=== PATIENT | male | born 1965 | race Caucasian/White ===

== ENCOUNTER 2020-03-25 13:58 | Outpatient (REF) | payer MEDICAID, SELFPAY | END 2020-03-25 13:59 | disposition home or self-care (01) | LOC: HO.LAB 13:58 | PROVIDERS: PCP Internal Medicine; Visit Provider Internal Medicine | DX: Z20.828 Contact with and (suspected) exposure to other viral communicable diseases (principal) | CPT/HCPCS: C9803; U0003 ==

== ENCOUNTER 2020-06-06 08:28 | Outpatient (REF) | payer MEDICAID, SELFPAY ==
[2020-06-06 09:12] LABS: Estimated Average Glucose 128 mg/dL; Hemoglobin A1c % 6.1 %
[2020-06-06 10:23] LABS: Alanine Aminotransferase 51 U/L (0-40); Albumin Level 4.1 g/dL (3.5-5.0); Alkaline Phosphatase 56 U/L (39-117); Anion Gap 13 (12-20); Aspartate Amino Transferase 19 U/L (5-37); Bilirubin Total 0.4 mg/dL (0.0-1.0); Blood Urea Nitrogen 17 mg/dL (9-16); Calcium 9.2 mg/dL (8.4-10.2); Carbon Dioxide 30 mmol/L (22-29); Chloride 104 mmol/L (96-108); Cholesterol 219 mg/dL; Estimated Glomerular Filt Rate > 60; Glucose Fasting 132 mg/dL (60-99); HDL Cholesterol 31 mg/dL; LDL Cholesterol Calculated 137 mg/dl; Potassium 4.6 mmol/L (3.3-5.1); Sodium 142 mmol/L (135-145); Total Protein 6.4 g/dL (6.5-8.0); Triglycerides 256 mg/dL
[2020-06-06 10:46] LABS: TSH reflex Free T4 1.41 uIU/mL (0.32-4.0)
== END 2020-06-06 08:29 | disposition home or self-care (01) ==
LOC: HO.LAB 08:28
PROVIDERS: PCP Internal Medicine; Visit Provider Physician Assistant
DX: Z13.1 Encounter for screening for diabetes mellitus (principal); Z13.29 Encounter for screening for other suspected endocrine disorder; Z13.220 Encounter for screening for lipoid disorders
CPT/HCPCS: 36415; 80053; 80061; 83036; 84443

== ENCOUNTER 2020-07-02 07:26 | Outpatient (REF) | payer OTHER, SELFPAY ==
--- NOTE | ~2020-07-02 | XR_ITS ---
EXAMINATION: X-RAY BILATERAL KNEES CLINICAL INFORMATION: Pain COMPARISON: Left knee 05/31/2019 TECHNIQUE: Bilateral knees each 2 views FINDINGS: Right knee: Normal alignment. No fracture or dislocation. Mild lateral compartment joint space narrowing. No effusion. Mild soft tissue swelling in overlying the patellar tendon.. Left knee: Mild medial compartment arthritis. No fracture or dislocation. Small suprapatellar joint fluid. XR/XR knee LT 2V IMPRESSION: 1. Mild lateral compartment arthritis right knee. 2. Mild medial compartment arthritis left knee. Small suprapatellar joint fluid.
--- NOTE | ~2020-07-02 | XR_ITS ---
EXAMINATION: X-RAY BILATERAL KNEES CLINICAL INFORMATION: Pain COMPARISON: Left knee 05/31/2019 TECHNIQUE: Bilateral knees each 2 views FINDINGS: Right knee: Normal alignment. No fracture or dislocation. Mild lateral compartment joint space narrowing. No effusion. Mild soft tissue swelling in overlying the patellar tendon.. Left knee: Mild medial compartment arthritis. No fracture or dislocation. Small suprapatellar joint fluid. XR/XR knee RT 2V IMPRESSION: 1. Mild lateral compartment arthritis right knee. 2. Mild medial compartment arthritis left knee. Small suprapatellar joint fluid.
== END 2020-07-02 07:27 | disposition home or self-care (01) ==
LOC: HO.XRAY 07:26
PROVIDERS: PCP Internal Medicine; Visit Provider Nurse Practitioner Family
DX: M25.561 Pain in right knee (principal); M25.562 Pain in left knee
CPT/HCPCS: 73560

== ENCOUNTER 2020-09-24 06:40 | Emergency (ER) | payer OTHER, SELFPAY ==
--- NOTE | ~2020-09-24 | XR_ITS ---
EXAMINATION: XR ELBOW, RIGHT CLINICAL INFORMATION: Pain in ulnar nerve area COMPARISON: None TECHNIQUE: AP, lateral, and oblique views of the right elbow. FINDINGS: The bones and soft tissues are normal. No fracture or joint effusion. Alignment is anatomic. Joint spaces are maintained. XR/XR elbow RT 2V IMPRESSION: Normal right elbow.
--- NOTE | 2020-09-24 06:56 | ED.EXTPRO ---
HPI - Extremity Problem General Chief complaint: Extremity Problem Stated complaint: WOKE UP WITH RIGHT ARM PAIN,NO OTHER COMPLAINTS Time Seen by Provider: 09/24/20 06:56 Source: patient Mode of arrival: ambulatory Limitations: no limitations History of Present Illness HPI Narrative: Patient woke up with arm pain. Patient denies using the arm yesterday. Denies falling asleep with his arm impinged on anything. Complaint: extremity pain Onset (ago): hour(s) Pain Consistency: constant Location: right and upper extremity Quality: burning Radiation: distal Relieving factors: nothing Exacerbating factors: range of motion Associated symptoms: denies other symptoms Related Data Previous Rx's Medication Instructions Recorded fluocinolone acetonide oil 0.01 % 5 drp OTIC (EAR) LEFT BID 14 Days 05/23/20 ear drops #20 ml sildenafil 50 mg tablet 50 mg PO DAILY PRN 3 Days #3 tab 05/23/20 cyclobenzaprine 10 mg tablet 10 mg PO BEDTIME PRN 30 Days #30 07/01/20 tab ibuprofen 800 mg tablet 800 mg PO TID PRN 10 Days #30 tab 07/01/20 naproxen [Naprosyn] 500 mg PO BID #20 tab 09/24/20 Allergies Allergy/AdvReac Type Severity Reaction Status Date / Time No Known Allergies Allergy Verified 05/23/20 09:53 [No Known Allergies*] Review of Systems Constitutional: Constitutional: Reports no additional constitutional complaints Eyes: Eyes: Reports no additional eye complaints ENT: Denies dizziness Cardiovascular: Cardiovascular: Reports no additional cardiovascular complaints Respiratory: Respiratory: Reports as per HPI Gastrointestinal: Gastrointestinal: Reports no additional gastrointestinal complaints Musculoskeletal: Musculoskeletal: Reports no additional musculoskeletal complaints Integumentary/Breasts: Skin/Breast: Denies rash Neurologic: Reports system reviewed and no additional complaints, except as documented, Denies dizziness and Denies Sensory deficit (Neuro) Psychiatric: Psychiatric: Denies anxiety PMFSH Past Medical History Medical History Bilateral knee pain Dyslipidemia Erectile dysfunction Lumbar pain Lumbar radiculopathy, chronic Lumbar spondylosis with myelopathy Obese Shortness of breath Surgical History H/O right wrist surgery History of ankle surgery History of arthroscopy of right knee Family History Family History Father Hypertension Mother Medical history unknown Maternal Grandmother Lung cancer Maternal Grandfather Lung cancer Social History Social History Alcohol intake: current Alcohol intake frequency: a few times a week Alcohol type: beer and hard liquor Patient Tobacco Use Status: Former Tobacco user Smoked in Last 30 Days: No Use of substances other than those prescribed or required for medical reasons: Yes Substance Use Type: Marijuana Substance Use Frequency: Daily Last Used Substance: Hours (ago) Advance Directives: No Advance Directives Information Provided: No Physical Exam Vital Signs: Vital Signs: Last Vital Signs Temp 97.9 F 09/24/20 07:01 Pulse 85 09/24/20 07:01 Resp 14 09/24/20 07:01 BP 138/91 H 09/24/20 07:01 Pulse Ox 97 09/24/20 07:01 Body Mass Index 41.5 Const: General: healthy appearing Nutritional Appearance: average body habitus Orientation/consciousness: oriented to person and patient oriented x3 Limitations: no limitations HENMT: Head: Yes normal to inspection Ears: external ears normal General nose exam: Normal external nose present Mouth: Normal oral and palatal mucosa present and oropharynx normal Throat: Yes posterior oropharynx normal Eyes: General: appearance normal, both eyes and all related structures Neck: Other: supple Neck: Yes normal visual inspection Chest: Chest palpation & inspection: normal inspection of the chest Resp: Auscultation: clear to auscultation bilaterally Cardio: Jugular venous distension: no JVD Rate: regular rate Rhythm: regular rhythm Heart sounds: S1 normal heart sound present and S2 normal heart sound present GI: Inspection: Yes normal to inspection Palpation (GI): Soft to palpation, nontender and No hepatosplenomegaly present Auscultation: normal bowel sounds : General: Yes no CVA tenderness Back/Spine/Pelvis: Back: no CVA tenderness Skin: General skin exam: no rashes or lesions noted Neuro: General: oriented to person and patient oriented x3 Cranial nerves: Yes CN's II-XII intact bilaterally Motor exam (neuro): 5/5 motor strength present throughout Sensory Exam: No Sensory deficit (Neuro) Extrem: Other: Pain to elbow point tendenerness just next to olecranon where the ulnar nerve passes Psych: Appearance: grossly normal NIH Stroke Scale Level of Consciousness: Alert Level of Consciousness Questions: Answers both questions correctly Level of Consciousness Commands: Performs both tasks correctly Best Gaze: Normal Visual: No visual loss Facial Palsy: Normal Motor Arm (Right): No drift Motor Arm (Left): No drift Motor Leg (Right): No drift Motor Leg (Left): No drift Limb Ataxia: Absent Sensory: Normal Best Language: No aphasia Dysarthia: Normal Extinction and Inattention: No abnormality Score: 0 Course Course Course Narrative: Patient with no evidence of stroke, there is direct tenderness to ulnar nerve area Reevaluation(s) Reevaluation #1: inflammation to ulnar nerve oldecranon area, no evidence of CVA will dc on NSAIDs Time: 08:50 MDM - Extremity (Nontraumatic) Imaging Data right elbow: Radiologist's impression: normal elbow Discharge Plan Discharge Clinical Impression: Ulnar nerve entrapment at right elbow Bursitis, olecranon Qualifiers: Laterality: right Qualified Code(s): M70.21 - Olecranon bursitis, right elbow Patient Disposition: Home, Self-Care Instructions: Elbow Bursitis (ED) Prescriptions: New naproxen [Naprosyn] 500 mg tablet 500 mg PO BID Qty: 20 RF: 0 No Action fluocinolone acetonide oil [DermOtic Oil] 0.01 % drops 5 drp otic (ear) left BID 14 Days Qty: 20 RF: 2 sildenafil 50 mg tablet 50 mg PO DAILY PRN (Reason: sexual activity) 3 Days Qty: 3 RF: 3 cyclobenzaprine 10 mg tablet 10 mg PO BEDTIME PRN (Reason: muscle spasm) 30 Days Qty: 30 RF: 0 ibuprofen 800 mg tablet 800 mg PO TID PRN (Reason: pain) 10 Days Qty: 30 RF: 0 Referrals: Adri Dunn MD [Primary Care Provider] - 1 week
[2020-09-24 07:01] VITALS: BP 138/91; BP 210/130; PULSE 85; PULSE 86; RESP 14; TEMP 36.6; O2SAT 97; BMI 41.5
[2020-09-24] MEDS: Ketorolac Tromethamine 60 MG/2 ML VIAL IM (07:37)
== END 2020-09-24 09:07 | disposition home or self-care (01) ==
PROVIDERS: Emergency Provider Emergency Medicine; PCP Internal Medicine
DX: G56.21 Lesion of ulnar nerve, right upper limb (principal); M70.21 Olecranon bursitis, right elbow
CPT/HCPCS: 73070; 96372; 99284; J1885

== ENCOUNTER 2020-12-21 09:25 | Emergency (ER) | payer OTHER, SELFPAY ==
[2020-12-21 10:30] VITALS: BP 152/95; PULSE 115; RESP 16; TEMP 36.6; O2SAT 94; BMI 40.7
[2020-12-21 11:00] LABS: MANUAL DIFF FLAG NO
--- NOTE | 2020-12-21 11:10 | ED.GIBLEED ---
HPI - GI Bleed General Chief complaint: GI Bleed Stated complaint: blood in stool Time Seen by Provider: 12/21/20 10:31 Source: patient Mode of arrival: ambulatory Limitations: no limitations History of Present Illness HPI Narrative: Patient comes to the emergency room complaining blood in the stool for the last 3 days. Patient states he has mild abdominal discomfort, no pain, no vomiting. Patient denies diarrhea or constipation. Patient states that he sees the blood only when he wipes. Patient denies dizziness, no chest pain or shortness of Related Data Previous Rx's Medication Instructions Recorded fluocinolone acetonide oil 0.01 % 5 drp OTIC (EAR) LEFT BID 14 Days 05/23/20 ear drops (DermOtic Oil) #20 ml sildenafil 50 mg tablet 50 mg PO DAILY PRN 3 Days #3 tab 05/23/20 cyclobenzaprine 10 mg tablet 10 mg PO BEDTIME PRN 30 Days #30 07/01/20 tab ibuprofen 800 mg tablet 800 mg PO TID PRN 10 Days #30 tab 07/01/20 naproxen 500 mg tablet (Naprosyn) 500 mg PO BID #20 tab 09/24/20 Allergies Allergy/AdvReac Type Severity Reaction Status Date / Time No Known Allergies Allergy Verified 05/23/20 09:53 [No Known Allergies*] Review of Systems Review of Systems: Constitutional : No Weight loss, No Fever, No Chills, No Night Sweats, No Fatigue, No Malaise ENT/Mouth : No Hearing loss, No Ear Pain, No Nasal Congestion, No Sinus Pain, No Hoarseness, No sore throat, No Rhinorrhea, No Swallowing Difficulty Eyes: No Eye Pain, No Swelling, No Redness, No Foreign Body, No Discharge, No Vision Changes Cardiovascular : No Chest Pain, No SOB, No Dyspnea on Exertion, No Orthopnea, No Edema, No Palpitations Respiratory : No Cough, No Sputum, No Wheezing, No Smoke Exposure, No Dyspnea Gastrointestinal : No Nausea, No Vomiting, No Diarrhea, No Constipation, complaining of mild diffuse abdominal discomfort, complaining of seeing blood in the stool when he wipes Genitourinary : no irregular bleeding, No Dysuria, No Urinary Frequency, No Hematuria, No Urinary Incontinence, No Urgency, No Flank Pain, No Urinary Flow Changes, No Hesitancy Musculoskeletal : No joint pain, No Myalgias, No Joint Swelling Skin : No Skin Lesions, No rash Neuro : No Weakness, No Numbness, No Paresthesias, No Loss of Consciousness, No Dizziness, No Headache Psych : No Anxiety/Panic, No Depression, No SI/HI/AH/VH, No Social Issues, Heme/Lymph: No Bruising, No Bleeding,No Lymphadenopathy Endocrine : No Polyuria, No Polydipsia, No Temperature Intolerance PMFSH Past Medical History Medical History Bilateral knee pain Dyslipidemia Erectile dysfunction Lumbar pain Lumbar radiculopathy, chronic Lumbar spondylosis with myelopathy Obese Shortness of breath Surgical History H/O right wrist surgery History of ankle surgery History of arthroscopy of right knee Family History Family History Father Hypertension Mother Medical history unknown Maternal Grandmother Lung cancer Maternal Grandfather Lung cancer Social History Social History Alcohol intake: current Alcohol intake frequency: a few times a week Alcohol type: beer and hard liquor Patient Tobacco Use Status: Former Tobacco user Substance Use Type: Marijuana Advance Directives: No Advance Directives Information Provided: No Physical Exam Vital Signs: Vital Signs: Last Vital Signs Temp 98 F 12/21/20 10:30 Pulse 115 H 12/21/20 10:30 Resp 16 12/21/20 10:30 BP 152/95 H 12/21/20 10:30 Pulse Ox 94 12/21/20 10:30 Body Mass Index 40.7 Course Course Course Narrative: I discussed with the patient that he needs as CT a, patient states that he does not want an IV, complained to the nurse that is taking for a long time, I discussed with the patient that were short staffed. Patient stated that he does not care. Patient states he was to leave. So far, patient's labs show that he has a guaiac-positive test, white blood cell count within normal limits. It is likely that his diagnosis is internal hemorrhoids. At this time, patient is not having abdominal pain. However, the patient's workup is not complete. Patient will be leaving against medical advice MDM - GI Bleed Lab Data Result diagrams: 12/21/20 10:54 12/21/20 10:54 Labs: Lab Results 12/21/20 12/21/20 12/21/20 Range/Units 10:54 10:54 10:56 WBC 7.2 (4.8-10.8) X10*3/uL RBC 5.20 (4.60-5.80) X10*6/uL Hgb 16.1 (14.0-18.0) g/dl Hct 45.9 (42-52) % MCV 88.3 (80-98) fL MCH 31.0 (27.0-33.0) pg MCHC 35.1 (31.0-36.0) g/dl RDW 12.6 (11.0-16.0) % Plt Count 199 (160-400) X10*3/uL MPV 10.2 (9.4-12.4) fL Immature Gran % (Auto) 0.8 H (0.0-0.4) % Neut % (Auto) 63.4 (45-73) % Lymph % (Auto) 23.3 (20-40) % Upson % (Auto) 9.0 (2-11) % Eos % (Auto) 3.1 (0-4) % Baso % (Auto) 0.4 (0-2) % Lymph # (Auto) 1.7 (1.2-4.9) X10*3/uL Upson # (Auto) 0.7 (0.1-1.2) X10*3/uL Eos # (Auto) 0.2 (0.0-0.4) X10*3/uL Baso # (Auto) 0.0 (0.0-0.2) X10*3/uL Abs Immat Gran (auto) 0.06 H (0.00-0.03) X10*3/uL Absolute Neuts (auto) 4.6 (2.0-8.3) X10*3/uL Absolute Nucleated RBC 0.000 (0.0-0.012) X10*3/uL Nucleated RBC % (auto) 0.0 (0.0-0.2) /100WBC Sodium 138 (135-145) mmol/L Potassium 4.3 (3.3-5.1) mmol/L Chloride 106 (96-108) mmol/L Carbon Dioxide 24 (22-29) mmol/L Anion Gap 12 (12-20) BUN 14 (9-16) mg/dL Creatinine 1.04 (0.5-1.4) mg/dL Estim Creat Clear Calc 114.0 Estimated GFR > 60 Random Glucose 246 H (60-115) mg/dL Calcium 9.2 (8.4-10.2) mg/dL Total Bilirubin 0.4 (0.0-1.0) mg/dL Direct Bilirubin 0.2 (0.0-0.5) mg/dL AST 70 H (5-37) U/L ALT 127 H (0-40) U/L Alkaline Phosphatase 62 (39-117) U/L Total Protein 6.3 L (6.5-8.0) g/dL Albumin 3.8 (3.5-5.0) g/dL Stool Occult Blood POSITIVE (NEGATIVE) Discharge Plan Discharge Clinical Impression: Rectal bleeding Patient Disposition: Left Against Medical Advice Instructions: Rectal Bleeding (ED) Additional Instructions: You left against medical advice. Your workup is not complete. Please follow-up with your primary care physician tomorrow. If you have any worsening or new symptoms, please return to the emergency room or call 911 Prescriptions: No Action fluocinolone acetonide oil [DermOtic Oil] 0.01 % drops 5 drp otic (ear) left BID 14 Days Qty: 20 RF: 2 naproxen [Naprosyn] 500 mg tablet 500 mg PO BID Qty: 20 RF: 0 sildenafil 50 mg tablet 50 mg PO DAILY PRN (Reason: sexual activity) 3 Days Qty: 3 RF: 3 cyclobenzaprine 10 mg tablet 10 mg PO BEDTIME PRN (Reason: muscle spasm) 30 Days Qty: 30 RF: 0 ibuprofen 800 mg tablet 800 mg PO TID PRN (Reason: pain) 10 Days Qty: 30 RF: 0
[2020-12-21 11:24] LABS: Alanine Aminotransferase 127 U/L (0-40); Albumin Level 3.8 g/dL (3.5-5.0); Alkaline Phosphatase 62 U/L (39-117); Anion Gap 12 (12-20); Aspartate Amino Transferase 70 U/L (5-37); Bilirubin Direct 0.2 mg/dL (0.0-0.5); Bilirubin Total 0.4 mg/dL (0.0-1.0); Blood Urea Nitrogen 14 mg/dL (9-16); Calcium 9.2 mg/dL (8.4-10.2); Carbon Dioxide 24 mmol/L (22-29); Chloride 106 mmol/L (96-108); Estimated Glomerular Filt Rate > 60; Glucose Random 246 mg/dL (60-115); Potassium 4.3 mmol/L (3.3-5.1); Sodium 138 mmol/L (135-145); Total Protein 6.3 g/dL (6.5-8.0)
[2020-12-21 11:26] LABS: OBS Int Ctl Valid YES; OBS1 POSITIVE (NEGATIVE)
[2020-12-21 11:27] LABS: Basophils Percent Auto 0.4 % (0-2); Eosinophils Absolute Auto 0.2 X10*3/uL (0.0-0.4); Eosinophils Percent Auto 3.1 % (0-4); Hematocrit 45.9 % (42-52); Hemoglobin 16.1 g/dl (14.0-18.0); Imm Gran Abs Auto 0.06 X10*3/uL (0.00-0.03); Imm Gran Pct Auto 0.8 % (0.0-0.4); Lymphocytes Absolute Auto 1.7 X10*3/uL (1.2-4.9); Lymphocytes Percent Auto 23.3 % (20-40); Mean Corpuscular HGB Conc 35.1 g/dl (31.0-36.0); Mean Corpuscular Volume 88.3 fL (80-98); Mean Platelet Volume 10.2 fL (9.4-12.4); Monocytes Absolute Auto 0.7 X10*3/uL (0.1-1.2); Neutrophils Absolute Auto 4.6 X10*3/uL (2.0-8.3); Neutrophils Percent Auto 63.4 % (45-73); Platelet Count 199 X10*3/uL (160-400); Red Cell Distribution Width 12.6 % (11.0-16.0); White Blood Count 7.2 X10*3/uL (4.8-10.8)
== END 2020-12-21 13:27 | disposition left against medical advice (07) ==
PROVIDERS: Emergency Provider Emergency Medicine; PCP Internal Medicine
DX: K62.5 Hemorrhage of anus and rectum (principal); F12.90 Cannabis use, unspecified, uncomplicated; Z87.891 Personal history of nicotine dependence; Z79.899 Other long term (current) drug therapy
CPT/HCPCS: 36415; 80048; 80076; 82272; 85025; 99283

== ENCOUNTER 2021-02-27 11:49 | Emergency (ER) | payer OTHER, SELFPAY ==
--- NOTE | ~2021-02-27 | XR_ITS ---
EXAMINATION: XR KNEE, LEFT CLINICAL INFORMATION: Worsening pain over past few months. COMPARISON: Radiographs left knee 07/02/2020, 05/31/2019 TECHNIQUE: 5 views of the left knee. FINDINGS: There is no fracture, dislocation, destructive process. Again, there are osteoarthritic changes medial knee joint compartment with joint narrowing and narrowing. A moderate suprapatellar effusion is present, increased from prior study. Joint narrowing is increased since 2020. There is no erosive change or chondrocalcinosis. XR/XR knee LT 4V IMPRESSION: Osteoarthritis medial knee joint compartment with moderate effusion increased from prior study.
[2021-02-27 12:58] VITALS: BP 140/76; PULSE 105; RESP 20; TEMP 36.1; O2SAT 95; BMI 41.5
--- NOTE | 2021-02-27 13:41 | ED.EXTPRO ---
HPI - Extremity Problem General Chief complaint: Extremity Problem Stated complaint: L KNEE PAIN Time Seen by Provider: 02/27/21 13:11 Source: patient Mode of arrival: ambulatory Limitations: no limitations History of Present Illness HPI Narrative: 56-year-old male past medical history dyslipidemia, obesity presents to the emergency department with 3 months of left-sided knee pain that is progressively worsening over the past week. Patient states that he recently got a new job at [employer], where he is on his feet for long periods of time. He states he does not remember how he injured his knee 3 months ago, but he states there is no trauma. He states that the pain is constant, severe worse with walking and movement better at rest. He states he has also noted some associated left knee swelling. He denies paresthesias, numbness, tingling, chest pain, shortness of breath, fevers, chills, headache. MD Complaint: extremity pain (left knee ) and extremity swelling (left knee ) Onset (ago): month(s) (3) Pain Consistency: constant Location: left Severity scale (1-10): 6 Quality: aching and constant Radiation: none Relieving factors: immobilization Exacerbating factors: range of motion, weight bearing and walking Associated symptoms: denies other symptoms Related Data Previous Rx's Medication Instructions Recorded fluocinolone acetonide oil 0.01 % 5 drp OTIC (EAR) LEFT BID 14 Days 05/23/20 ear drops (DermOtic Oil) #20 ml sildenafil 50 mg tablet 50 mg PO DAILY PRN 3 Days #3 tab 05/23/20 cyclobenzaprine 10 mg tablet 10 mg PO BEDTIME PRN 30 Days #30 07/01/20 tab ibuprofen 800 mg tablet 800 mg PO TID PRN 10 Days #30 tab 07/01/20 naproxen 500 mg tablet (Naprosyn) 500 mg PO BID #20 tab 09/24/20 naproxen 500 mg tablet 500 mg PO BID PRN #14 tab 02/27/21 Allergies Allergy/AdvReac Type Severity Reaction Status Date / Time pepper (genus Capsicum) AdvReac Unknown Verified 02/27/21 13:00 Review of Systems Review of Systems: Constitutional : No Weight loss, No Fever, No Chills, No Fatigue, No Malaise ENT/Mouth : No sore throat, No Rhinorrhea Eyes: No Eye Pain, No Swelling, No Redness Cardiovascular : No Chest Pain, No SOB, No Dyspnea on Exertion, No Orthopnea, No Edema, No Palpitations Respiratory : No Cough, No Sputum, No Wheezing Gastrointestinal : No Nausea, No Vomiting, No Diarrhea, No Constipation, No abdominal Pain, No Hematochezia, No Melena Genitourinary : No Dysuria, No Urinary Frequency, No Hematuria, Musculoskeletal : + joint pain, No Myalgias, + Joint Swelling Skin : No Skin Lesions, No rash Neuro : No Weakness, No Numbness, No Dizziness, No Headache All other systems reviewed and are negative [facility] Past Medical History Attestation statement: The following information was validated with the patient. Source: old records reviewed and nursing notes reviewed Medical History Bilateral knee pain Dyslipidemia Erectile dysfunction Lumbar pain Lumbar radiculopathy, chronic Lumbar spondylosis with myelopathy Obese Shortness of breath Surgical History H/O right wrist surgery History of ankle surgery History of arthroscopy of right knee Family History Family History Father Hypertension Mother Medical history unknown Maternal Grandmother Lung cancer Maternal Grandfather Lung cancer Social History Social History Alcohol intake: current Alcohol intake frequency: a few times a week Alcohol type: beer and hard liquor Patient Tobacco Use Status: Former Tobacco user Substance Use Type: Marijuana Advance Directives: No Advance Directives Information Provided: Yes Physical Exam Vital Signs: Vital Signs: Last Vital Signs Temp 97 F 02/27/21 12:58 Pulse 105 H 02/27/21 12:58 Resp 20 02/27/21 12:58 BP 140/76 H 02/27/21 12:58 Pulse Ox 95 02/27/21 12:58 Body Mass Index 41.5 Appearance: Alert.? Oriented X3.? No acute distress.? Head: Normocephalic, atraumatic, no step-offs or deformities Eyes: Pupils equal, round and reactive to light.? ENT: Pharynx normal.? Neck: Normal inspection.? Neck supple.? CVS: Normal heart rate and rhythm.? Pulses normal.? Respiratory: No respiratory distress.? Breath sounds normal.? Abdomen: Soft and nontender.? Skin: Skin warm and dry.? Normal skin color.? Normal skin turgor.? Extremities: No lower extremity edema.? No calf ttp. 5/5 strength to bilateral upper and lower extremities + pain with ROM of left knee but full ROM + swelling to left knee, no overlying erythema. Right knee normal Back: No midline tenderness, no C-spine tenderness, full range of motion, no CVA tenderness bilaterally Neuro: Oriented X 3.? No motor deficit.? No sensory deficit. Course Reevaluation(s) Reevaluation #1: CARMINE wrap applied, medicated and noted improvement. Time: 13:49 Reevaluation #2: Left osteoarthritis of medial knee joint with moderate effusion. This is likely what is causing patient's pain. There were is no evident ligamentous or tendon involvement on exam. Patient is safe for discharge home with orthopedic follow-up. He has been advised to wear an Carmine wrap, he can remove this at night. He has also been advised to rest, ice, compress, elevate the extremity. Time: 14:16 MDM - Extremity (Nontraumatic) [facility] Narrative Medical decision making narrative: [id number] 56-year-old male past medical history significant for dyslipidemia, obesity presents to the emergency department with 3 months progressively worsening atraumatic left knee pain and swelling. Pain is worse with movement better at rest. Patient denies fevers, chills, nausea, vomiting, chest pain, shortness of breath. Patient denies trauma to the area. Upon physical examination patient appears comfortable and in no distress, he is able to ambulate without a limp, no ataxia. Lungs are clear to auscultation. S1-S2 appreciated free of murmurs. There is pain with ROM of left knee but full ROM. There is also edema to left knee, with no overlying erythema. Right knee normal. Bilateral popliteal pulses 2+ equal bilateral. Plan at this time is to obtain an x-ray of the left knee to rule out fractures, osteoarthritis, and fusion. He will be given Toradol for pain and discomfort. Am CARMINE wrap will be applied to left knee Imaging Data Left Knee Xray : Attestation: I personally reviewed and interpreted this imaging study as follows: Radiologist's impression: FINDINGS: There is no fracture, dislocation, destructive process. Again, there are osteoarthritic changes medial knee joint compartment with joint narrowing and narrowing. A moderate suprapatellar effusion is present, increased from prior study. Joint narrowing is increased since 2019. There is no erosive change or chondrocalcinosis.? XR/XR knee LT 4V IMPRESSION: Osteoarthritis medial knee joint compartment with moderate effusion increased from prior study. ? Critical Care Time Critical Care Time Critical Care Time: No Discharge Plan Discharge Clinical Impression: Generalized nontraumatic pain of knee region Osteoarthritis Qualifiers: Osteoarthritis location: knee Osteoarthritis type: primary Laterality: left Qualified Code(s): M17.12 - Unilateral primary osteoarthritis, left knee Patient Disposition: Home, Self-Care Instructions: Osteoarthritis (ED) Additional Instructions: Take your medications as prescribed. Rest, ice, compress, elevate. Wear your Carmine wrap as prescribed Follow-up with your primary care provider this week. Return to the emergency department with new or worsening symptoms. In case of emergency call 911 Prescriptions: New naproxen 500 mg tablet 500 mg PO BID PRN (Reason: pain) Qty: 14 RF: 0 No Action fluocinolone acetonide oil [DermOtic Oil] 0.01 % drops 5 drp otic (ear) left BID 14 Days Qty: 20 RF: 2 naproxen [Naprosyn] 500 mg tablet 500 mg PO BID Qty: 20 RF: 0 sildenafil 50 mg tablet 50 mg PO DAILY PRN (Reason: sexual activity) 3 Days Qty: 3 RF: 3 cyclobenzaprine 10 mg tablet 10 mg PO BEDTIME PRN (Reason: muscle spasm) 30 Days Qty: 30 RF: 0 ibuprofen 800 mg tablet 800 mg PO TID PRN (Reason: pain) 10 Days Qty: 30 RF: 0 Referrals: Zach Gunter MD [Physician] - 1 week Stand Alone Forms: Work/School Release
[2021-02-27] MEDS: Ketorolac Tromethamine 15 MG/ML VIAL 30 MG IM (13:59)
== END 2021-02-27 14:37 | disposition home or self-care (01) ==
PROVIDERS: Emergency Provider Emergency Medicine Emergency Medical Services; PCP Internal Medicine
DX: M25.562 Pain in left knee (principal); M17.12 Unilateral primary osteoarthritis, left knee; M25.462 Effusion, left knee
CPT/HCPCS: 73564; 96372; 99284; J1885

== ENCOUNTER 2021-03-21 07:07 | Outpatient (REF) | payer OTHER, SELFPAY ==
--- NOTE | ~2021-03-21 | XR_ITS ---
EXAMINATION: XR knee standing BI, XR knee LT 1V CLINICAL INFORMATION: Pain COMPARISON: 02/27/2021 TECHNIQUE: Bilateral frontal standing, left patella sunrise view. FINDINGS: BONES: No fracture or dislocation is present. JOINTS: Narrowing of joint spaces and developed osteophytes from the edges of articular surfaces suggest degenerative osteoarthritis. SOFT TISSUE: Normal XR/XR knee standing BI IMPRESSION: Mild degenerative osteoarthritis involving left more than right knee medial more than lateral compartments.
--- NOTE | ~2021-03-21 | XR_ITS ---
EXAMINATION: XR knee standing BI, XR knee LT 1V CLINICAL INFORMATION: Pain COMPARISON: 02/27/2021 TECHNIQUE: Bilateral frontal standing, left patella sunrise view. FINDINGS: BONES: No fracture or dislocation is present. JOINTS: Narrowing of joint spaces and developed osteophytes from the edges of articular surfaces suggest degenerative osteoarthritis. SOFT TISSUE: Normal XR/XR knee LT 1V IMPRESSION: Mild degenerative osteoarthritis involving left more than right knee medial more than lateral compartments.
== END 2021-03-21 07:08 | disposition home or self-care (01) ==
LOC: HO.HOSX 07:07
PROVIDERS: Visit Provider Physician Assistant
DX: M17.12 Unilateral primary osteoarthritis, left knee (principal)
CPT/HCPCS: 73560; 73565; 99202

== ENCOUNTER → 2021-05-26 13:35 | Outpatient (BNVA) | payer OTHER, SELFPAY | PROVIDERS: PCP Internal Medicine; Visit Provider Physician Assistant | DX: M17.0 Bilateral primary osteoarthritis of knee (principal) | CPT/HCPCS: 99212 ==

== ENCOUNTER → 2021-07-09 14:04 | Outpatient (BNVA) | payer OTHER, SELFPAY | PROVIDERS: PCP Internal Medicine; Referring Provider Internal Medicine; Visit Provider Physician Assistant | DX: Z01.818 Encounter for other preprocedural examination (principal); K64.9 Unspecified hemorrhoids; R00.0 Tachycardia, unspecified; I49.9 Cardiac arrhythmia, unspecified | CPT/HCPCS: 99202 ==

== ENCOUNTER → 2021-09-11 13:45 | Outpatient (BNVA) | payer OTHER, SELFPAY | PROVIDERS: PCP Internal Medicine; Referring Provider Physician Assistant; Visit Provider Internal Medicine Cardiovascular Disease | DX: Z01.810 Encounter for preprocedural cardiovascular examination (principal) | CPT/HCPCS: 93005; 99202 ==

== ENCOUNTER 2022-05-28 06:02 | Outpatient (REF) | payer OTHER, SELFPAY ==
[2022-05-28 11:52] LABS: Alanine Aminotransferase 54 U/L (0-40); Albumin Level 3.9 g/dL (3.5-5.0); Alkaline Phosphatase 74 U/L (39-117); Anion Gap 18 (12-20); Aspartate Amino Transferase 30 U/L (5-37); Bilirubin Total 0.6 mg/dL (0.0-1.0); Blood Urea Nitrogen 12 mg/dL (9-16); Calcium 9.2 mg/dL (8.4-10.2); Carbon Dioxide 25 mmol/L (22-29); Chloride 103 mmol/L (96-108); Cholesterol 230 mg/dL; Estimated Glomerular Filt Rate > 60; Glucose Fasting 195 mg/dL (60-99); HDL Cholesterol 36 mg/dL; LDL Cholesterol Calculated 138 mg/dl; Potassium 4.5 mmol/L (3.3-5.1); Sodium 141 mmol/L (135-145); Total Protein 6.5 g/dL (6.5-8.0); Triglycerides 280 mg/dL
[2022-05-28 12:12] LABS: PSA,Total (Free>4and<10) 0.32 ng/mL (0.00-4.00)
== END 2022-05-28 06:03 | disposition home or self-care (01) ==
LOC: HO.HMGCLDS 06:02
PROVIDERS: PCP Internal Medicine; Visit Provider Internal Medicine
DX: Z00.00 Encounter for general adult medical examination without abnormal findings (principal); Z12.5 Encounter for screening for malignant neoplasm of prostate; E78.5 Hyperlipidemia, unspecified
CPT/HCPCS: 36415; 80053; 80061; 84153

== ENCOUNTER 2022-12-16 08:45 | Outpatient (AMB) | payer OTHER, SELFPAY ==
--- NOTE | 2022-12-16 08:49 | A.OFFVIS_ITS ---
Intake VS Expanded 12/16/22 09:02 12/16/22 09:20 Height 5 ft 10 in 5 ft 10 in Weight 304 lb 3.806 oz 304 lb BMI 43.6 43.6 Intake Visit Reasons: DM2 Allergies pepper (genus Capsicum) Adverse Reaction (Verified 10/05/22 09:56) Unknown HPI Nutrition Presentation Details Patient presents for initial medical nutrition therapy for type 2 diabetes. Diabetes was diagnosed in October 2022. Patient was referred by primary care physician, Dr. Sarkar Pt reports cutting down on sugar intake typical meal intake B: 1 slice eggs omelette with cranberry juice or glass of milk or tomato juice 12-1 soup (clam chowder or pea soup or ramen noddles and sandwich, zero sweet 5-7 pm: meat (poultry or fish) /starch ( potato or rice white) , (rarely may include) corn or broccoli or Declo sprouts) snack on pretzels fish 3 times/wk poultry/beef/egg 12-18 oz/d fruits: 0-1/d vegetables: 2-3 x/wk dairy: 4 serving/d starches : > 20 serving/d physical activity: daily life activities eTOH/Smoking:--- PTU-Gqtirao-Sk.Jeor Equation Height 5 ft 10 in Weight 304 lb Resting Metabolic Rate 2223.19 Calculated Activity Level Sedentary Calories Needed to Maintain Weight 2667.83 Diagnosis0 Nutrition problem #1 food nutri know defi As related to (etiology) #1 diagnosis As evidenced by (sign/symptom) #1 food recall and knowledge deficit of diet Monitoring/Goals Nutrition problem monitoring level of knowledge/skill and total CHO intake Learning/Education Readiness to learn good Stages of change preparation Educational materials provided Yes (meal planning) Most Recent Diabetes Results: Cholesterol 230 mg/dL 05/28/22 HDL Cholesterol 36 mg/dL 05/28/22 Triglycerides 280 mg/dL 05/28/22 Creatinine 1.00 mg/dL (0.5-1.4) 05/28/22 Blood Urea Nitrogen 12 mg/dL (9-16) 05/28/22 Sodium 141 mmol/L (135-145) 05/28/22 Potassium 4.5 mmol/L (3.3-5.1) 05/28/22 Chloride 103 mmol/L (96-108) 05/28/22 Carbon Dioxide 25 mmol/L (22-29) 05/28/22 Calcium 9.2 mg/dL (8.4-10.2) 05/28/22 AST 30 U/L (5-37) 05/28/22 ALT 54 U/L (0-40) H 05/28/22 Total Protein 6.5 g/dL (6.5-8.0) 05/28/22 Albumin 3.9 g/dL (3.5-5.0) 05/28/22 [facility] Medical History (Updated 10/05/22 @ 10:22 by Adri Ariza MD) Physical exam Mixed hyperlipidemia Morbid obesity Screen for colon cancer Lumbar pain Bilateral knee pain Erectile dysfunction Dyslipidemia Obese Lumbar spondylosis with myelopathy Shortness of breath Lumbar radiculopathy, chronic Surgical History History of arthroscopy of right knee H/O right wrist surgery History of ankle surgery Family History (Updated 05/27/22 @ 15:12 by Adri Ariza MD) Father Heart attack COPD (chronic obstructive pulmonary disease) Mother No problems noted. Maternal Grandmother Lung cancer Maternal Grandfather Lung cancer Social History (Updated 05/27/22 @ 15:13 by Adri Ariza MD) Housing: Other (trailer) Alcohol intake: former Patient Tobacco Use Status: Former Tobacco user Tobacco use type: Cigarette e-Cigarette/Vaping Use: Never Used Second Hand Smoke Exposure: No Substance Use Type: Marijuana service: No Current occupational status: employed Current occupational exposures/hazards: No Cognitive needs: No Hearing needs: No Vision needs: No Assessment & Plan Assessment & Plan (1) Diabetes mellitus: Code(s): E11.9 - Type 2 diabetes mellitus without complications Plan: wt 138 kg(12/2022) Est kcal needs as per MSJ: 2700 (40% carb, 30% protein/fat) Est fluid needs as per 25-30 ml/d: 3400 Est prot per day as per 1 g/kg bw: 138 Recommend fiber intake : 8-10 g per day and gradually increase to 25-28 g per day for women and 35-38 g for men or as tolerated Recommend sodium intake per day : less than 2000 mg Educated patient on: ( R = reviewed V = verbalizes understanding N/R = needs review N/A = not applicable * Food sources of carbohydrate, adequate serving sizes and its role in various health conditions: R * Differences between complex carbohydrates a simple carbohydrates, role of fiber in diet: R * Differences between types of fats and role in diet (mono on saturated fat fatty acids, saturated fatty acids, trans fats): R basic * Food sources of sodium in salt and healthy modifications for heart health in kidney health: NR * Vitamins and minerals: NR * Healthy plate method concept: R * Physical activity: Benefits a precaution: R * Hypoglycemia protocol (rule of 15): NR * Dietary prevention of Hyperglycemia: R (2) Morbid obesity: Code(s): E66.01 - Morbid (severe) obesity due to excess calories Patient Instructions: Work on reducing total carbohydrates to 75-80 g in your evening meal Keep hydrated by choosing beverages with little carbohydrate Practice mindful eating Coding Level of Care Code Nutr Indiv Intake (51539) Diagnoses Diabetes mellitus E11.9 Morbid obesity E66.01 Time Spent (min) 40
[2022-12-16 09:02] VITALS: BMI 43.6
[2022-12-21 14:42] VITALS: BMI 43.6
== END 2022-12-16 10:10 | disposition home or self-care (01) ==
PROVIDERS: PCP Internal Medicine; Visit Provider Dietitian, Registered
DX: E11.9 Type 2 diabetes mellitus without complications (principal); E66.01 Morbid (severe) obesity due to excess calories

== ENCOUNTER → 2022-12-16 08:45 | Outpatient (BNVA) | payer OTHER, SELFPAY | PROVIDERS: PCP Internal Medicine; Visit Provider Dietitian, Registered | DX: E11.9 Type 2 diabetes mellitus without complications (principal); E66.01 Morbid (severe) obesity due to excess calories; Z68.41 Body mass index [BMI] 40.0-44.9, adult | CPT/HCPCS: 97802 ==

== ENCOUNTER 2023-01-13 07:47 | Outpatient (AMB) | payer OTHER, SELFPAY ==
[2023-01-13 08:08] VITALS: BP 126/80; PULSE 89; BMI 43.0
--- NOTE | 2023-01-13 08:08 | A.OFFPC_ITS ---
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 Accompanied by: Self / Same As Patient Allergies metformin Adverse Reaction (Severe, Verified 01/13/23 08:21) Diarrhea pepper (genus Capsicum) Adverse Reaction (Verified 01/13/23 08:21) Unknown Medication List - Last Reconciled 01/13/23 by Adri Ariza MD blood sugar diagnostic (FreeStyle Lite Strips) Use 1 test strip once a day blood-glucose meter (FreeStyle Lite Meter kit) As directed lancets (FreeStyle Lancets) Use 1 lancet once a day Tobacco use date assessed: 05/27/22 Dental Screening Dental Screen Date: 01/13/23 Did you have a dental visit in the last 12 months?: Yes Did you have a dental problem in the last 6 months where you did not have access to dental care?: No Was dental information given to patient?: Patient has dentist HPI HPI Comments History of Present Illness Details This is a 58-year-old male with diabetes mellitus type 2, mixed hyperlipidemia, morbid obesity and positive stool for occult blood that happened 2020 comes today for follow-up on his conditions. A1c within goal. He took metformin for about a week and had to stop due to severe diarrhea. Has not take anything for his glucose. I will start him on Actos. Last LDL was not on goal and this will be repeated. Was advised to follow a low-cholesterol diet. He is morbidly obese with a BMI of 43 and has declined weight loss surgery. Was advised to start diet and exercise as tolerated. Complains of left knee pain and he said he does not have any cartilage left as per Ortho. Declines physical therapy and ortho referral. Had a positive stool for occult blood in 2020 and was referred to Gastroenterology which hold off colonoscopy due to hearing a skip beat and was sent to Cardiology which clear him last year. He will be referred again to Gastroenterology. No chest pain or shortness of breath. [facility] Medical History Physical exam Mixed hyperlipidemia Morbid obesity Screen for colon cancer Lumbar pain Bilateral knee pain Erectile dysfunction Dyslipidemia Obese Lumbar spondylosis with myelopathy Shortness of breath Lumbar radiculopathy, chronic Surgical History History of tooth extraction History of arthroscopy of right knee H/O right wrist surgery History of ankle surgery Family History Father Heart attack COPD (chronic obstructive pulmonary disease) Mother No problems noted. Maternal Grandmother Lung cancer Maternal Grandfather Lung cancer Social History Housing: Other (trailer) Alcohol intake: former Patient Tobacco Use Status: Former Tobacco user Tobacco use type: Cigarette e-Cigarette/Vaping Use: Never Used Second Hand Smoke Exposure: No Substance Use Type: Marijuana service: No Current occupational status: unemployed Cognitive needs: No Hearing needs: No Vision needs: No Questionnaire Thrive Questionnaire Date Thrive assessed: 05/27/22 COBY-7 AMB Questionnaire COBY-7 Date COBY - 7 assessed: 05/27/22 Source: Developed by Drs. Janusz Keller, Monet Edwards, Tiago Gregg and colleagues, with an educational mickie from [employer]. Review of Systems Const All systems reviewed & are unremarkable except as noted in HPI and below Eyes Reports no additional complaints, Denies change in vision and Denies other visual disturbances Card Denies chest pain at rest, Denies chest pain with activity, Denies edema, Denies irregular heart rhythm, Denies claudication, Denies dyspnea, Denies dyspnea on exertion, Denies orthopnea, Denies paroxysmal nocturnal dyspnea and Denies slow heart rate Resp Denies cough, Denies dyspnea and Denies dyspnea on exertion GI Denies abdominal pain, Denies change in bowel habits, Denies excessive flatus, Denies nausea and Denies vomiting Denies urinary hesitancy, Denies urinary incontinence and Denies urinary urgency Musc Denies abnormal gait, Denies atrophy, Denies deformity, Reports arthralgias and Denies limited range of motion Skin/Breast Denies bleeding lesions, Denies changing lesions and Denies rash Neuro Denies abnormal gait and Denies lack of coordination Physical exam (Primary Care) Vital Signs: Last Vital Signs BP 126/80 01/13/23 08:08 BMI result Body Mass Index 43.0 Tobacco/Smoking Status: Tobacco use Status Tobacco use date assessed 05/27/22 01/13/23 08:11 Patient Tobacco Use Status Former Tobacco user 01/13/23 08:11 Tobacco use type Cigarette 01/13/23 08:11 e-Cigarette/Vaping Use Never Used 01/13/23 08:11 Thrive Assessment: Date of Thrive Assessment Date Thrive assessed 05/27/22 01/13/23 08:11 Eyes General: appearance normal, both eyes and all related structures Eyelids: Yes eyelids normal Conjunctivae: conjunctivae normal Neck Neck: Yes normal visual inspection and Yes supple Resp Effort & Inspection: normal respiratory effort Auscultation: clear to auscultation bilaterally Cardio Jugular venous distension: no JVD Rate: regular rate Rhythm: regular rhythm Heart sounds: S1 normal heart sound present and S2 normal heart sound present Extrem General: Yes full ROM Office Procedures Flu Questionnaire Does the patient have a severe egg allergy?: No Results AMB Hemoglobin A1c AMB Hemoglobin A1c 6.9 % Last Edit by CHUY Gary on 01/13/23 08:1 6 Immunizations flu vacc [id number] 6mos up(PF) 60 mcg(15 mcgx4)/0.5 mL IM syringe Performing Provider: Adri Ariza MD Performing [facility] [place] Documented (not given) by: CHUY Gary on 01/13/23 08:13 Reason Not Given: Patient Refused Results Reviewed Results Reviewed: Laboratory Last Values Hgb A1c (Clinic) 6.9 % (4.0-6.0) H 01/13/23 08:15 Assessment and Plan Assessment & Plan (1) Diabetes mellitus: Code(s): E11.9 - Type 2 diabetes mellitus without complications Plan: Discontinue metformin. Start Actos. A1c goal is equal or less than 7%. (2) Mixed hyperlipidemia: Code(s): E78.2 - Mixed hyperlipidemia Plan: Repeat lipid panel. LDL goal is less than 70. Advised to follow a low- cholesterol diet. (3) Morbid obesity: Code(s): E66.01 - Morbid (severe) obesity due to excess calories Plan: Declines weight loss surgery. BMI goal is less than 30. Start diet and exercise as tolerated. (4) Occult blood positive stool: Code(s): R19.5 - Other fecal abnormalities Plan: Referred to Gastroenterology again. Orders: Orders Influenza [id number] Immunization Today Z23 - Encounter for immunization AMB Hemoglobin A1c Today E11.9 - Type 2 diabetes mellitus without complications Comprehensive [place]. Panel Fast Today E11.9 - Type 2 diabetes mellitus without complications Lipid Panel Today E78.5 - Hyperlipidemia, unspecified Microalbumin, Random (w Creat) Today E11.9 - Type 2 diabetes mellitus without complications Referrals Gastroenterology Referral Z12.11 - Encounter for screening for malignant neoplasm of colon Medications: New pioglitazone 15 mg PO DAILY 90 days 90 tabs 1RF E11.9 - Type 2 diabetes mellitus without complications Coding Level of Care Code Est Pt Level 4 (24489) Diagnoses Diabetes mellitus E11.9 Mixed hyperlipidemia E78.2 Morbid obesity E66.01 Occult blood positive stool R19.5 Time Spent (min) 23
== END 2023-01-13 08:30 | disposition home or self-care (01) ==
PROVIDERS: PCP Internal Medicine; Visit Provider Internal Medicine
DX: E11.9 Type 2 diabetes mellitus without complications (principal); E78.2 Mixed hyperlipidemia; E66.01 Morbid (severe) obesity due to excess calories; Z68.41 Body mass index [BMI] 40.0-44.9, adult; R19.5 Other fecal abnormalities
CPT/HCPCS: 83036; 99214

== ENCOUNTER 2023-01-14 09:01 | Outpatient (REF) | payer OTHER, SELFPAY ==
[2023-01-14 13:22] LABS: Alanine Aminotransferase 27 U/L (0-40); Albumin Level 3.8 g/dL (3.5-5.0); Alkaline Phosphatase 62 U/L (39-117); Anion Gap 17 (12-20); Aspartate Amino Transferase 18 U/L (5-37); Bilirubin Total 0.4 mg/dL (0.0-1.0); Blood Urea Nitrogen 12 mg/dL (9-16); Calcium 9.2 mg/dL (8.4-10.2); Carbon Dioxide 25 mmol/L (22-29); Chloride 102 mmol/L (96-108); Cholesterol 203 mg/dL (<200); Estimated Glomerular Filt Rate > 60; Glucose Fasting 164 mg/dL (60-99); HDL Cholesterol 32 mg/dL (>40); LDL Cholesterol Calculated 112 mg/dL (<100); Potassium 4.3 mmol/L (3.3-5.1); Sodium 140 mmol/L (135-145); Total Protein 6.6 g/dL (6.5-8.0); Triglycerides 296 mg/dL (<150)
== END 2023-01-14 09:02 | disposition home or self-care (01) ==
LOC: HO.HMGCLDS 09:01
PROVIDERS: PCP Internal Medicine; Visit Provider Internal Medicine
DX: E11.9 Type 2 diabetes mellitus without complications (principal); E78.5 Hyperlipidemia, unspecified
CPT/HCPCS: 36415; 80053; 80061; 82043; 82570

== ENCOUNTER 2023-03-23 08:23 | Outpatient (REF) | payer OTHER, SELFPAY ==
[2023-03-23 11:23] LABS: MANUAL DIFF FLAG NO
[2023-03-23 11:26] LABS: Basophils Percent Auto 0.6 % (0-2); Eosinophils Absolute Auto 0.4 X10*3/uL (0.0-0.4); Hematocrit 48.5 % (42.0-52.0); Hemoglobin 16.1 g/dl (14.0-18.0); Imm Gran Abs Auto 0.04 X10*3/uL (0.00-0.03); Imm Gran Pct Auto 0.6 % (0.0-0.4); Lymphocytes Absolute Auto 2.4 X10*3/uL (1.2-4.9); Lymphocytes Percent Auto 33.6 % (20-40); Mean Corpuscular HGB Conc 33.2 g/dl (31.0-36.0); Mean Corpuscular Hemoglobin 29.3 pg (27.0-33.0); Mean Corpuscular Volume 88.3 fL (80.0-98.0); Mean Platelet Volume 10.4 fL (9.4-12.4); Monocytes Absolute Auto 0.6 X10*3/uL (0.1-1.2); Monocytes Percent Auto 8.5 % (2-11); Neutrophils Absolute Auto 3.6 x10*3/uL (2.0-8.3); Neutrophils Percent Auto 50.7 % (45-73); Platelet Count 212 X10*3/uL (160-400); Red Blood Count 5.49 X10*6/uL (4.60-5.80); Red Cell Distribution Width 12.6 % (11.0-16.0)
[2023-03-23 12:05] LABS: HBS Num1 0.38 mIU/mL (0-7.99); HBc Num1 0.05 S/CO (0.00-0.79); HBsAGNum1 0.32 S/CO (0.00-0.99); Hepatitis B Core Antibody Nonreactive (Nonreactive); Hepatitis B Surface Antigen Negative (Negative); ~HepC Num1 0.06 S/CO (0.00-0.79); ~Hepatitis A Antibody IgM Nonreactive (Nonreactive); ~Hepatitis B Surface Antibody NONREACTIVE (Nonreactive); ~Hepatitis C Antibody Nonreactive (Nonreactive)
[2023-03-23 12:06] LABS: Alanine Aminotransferase 24 U/L (0-40); Albumin Level 3.8 g/dL (3.5-5.0); Alkaline Phosphatase 61 U/L (39-117); Anion Gap 11 (12-20); Aspartate Amino Transferase 16 U/L (5-37); Bilirubin Total 0.4 mg/dL (0.0-1.0); Blood Urea Nitrogen 15 mg/dL (9-16); Calcium 9.2 mg/dL (8.4-10.2); Carbon Dioxide 27 mmol/L (22-29); Chloride 106 mmol/L (96-108); Cholesterol 182 mg/dL (<200); Estimated Glomerular Filt Rate > 60; Glucose Fasting 164 mg/dL (60-99); HDL Cholesterol 31 mg/dL (>40); LDL Cholesterol Calculated 107 mg/dL (<100); Potassium 4.1 mmol/L (3.3-5.1); Sodium 140 mmol/L (135-145); Total Protein 6.7 g/dL (6.5-8.0); Triglycerides 224 mg/dL (<150)
[2023-03-23 12:21] LABS: Creatinine Urine 128.58 mg/dL; Microalbum/Creatinine Ratio Ur 3.8 ug/mg cr (<30)
[2023-03-26 09:08] LABS: TS Negative Control Passed; TS Panel A 0; TS Panel B 0; TS Positive Control Passed; TSpotTB Negative (Negative)
== END 2023-03-23 08:24 | disposition home or self-care (01) ==
LOC: HO.HMGCLDS 08:23
PROVIDERS: PCP Internal Medicine; Visit Provider Nurse Practitioner Gerontology
DX: E11.9 Type 2 diabetes mellitus without complications (principal); E78.5 Hyperlipidemia, unspecified; L40.0 Psoriasis vulgaris; K75.9 Inflammatory liver disease, unspecified
CPT/HCPCS: 36415; 80053; 80061; 82043; 82570; 85025; 86481; 86704; 86706; 86709; 86803; 87340

== ENCOUNTER 2023-06-02 08:50 | Outpatient (AMB) | payer OTHER, SELFPAY ==
[2023-06-02 08:59] VITALS: BP 120/80; BMI 42.5
--- NOTE | 2023-06-02 08:59 | A.OFFPC_ITS ---
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 Accompanied by: Self / Same As Patient Allergies metformin Adverse Reaction (Severe, Verified 06/02/23 09:18) Diarrhea pepper (genus Capsicum) Adverse Reaction (Verified 06/02/23 09:18) Unknown Medication List - Last Reconciled 06/02/23 by Adri Ariza MD apremilast (Otezla) 30 mg PO BID atorvastatin 40 mg PO BEDTIME 90 days blood sugar diagnostic (FreeStyle Lite Strips) Use 1 test strip once a day blood-glucose meter (FreeStyle Lite Meter kit) As directed lancets (FreeStyle Lancets) Use 1 lancet once a day pioglitazone 15 mg PO DAILY 90 days Tobacco use date assessed: 06/02/23 Dental Screening Dental Screen Date: 06/02/23 Did you have a dental visit in the last 12 months?: Yes Did you have a dental problem in the last 6 months where you did not have access to dental care?: No Was dental information given to patient?: Patient has dentist HPI HPI Comments History of Present Illness Details This is a 58-year-old male with morbid obesity and diabetes mellitus type 2 that comes for his physical exam. He is morbidly obese with a BMI of 42.5 and has tried to do diet on his own but has not been successful at losing weight. I will refer him again to weight management. A1c very close to goal and he is compliant with his medications. Last LDL was not on goal. I will repeat fasting labs in 6 months. Last diabetic eye exam was less than a year ago as per patient. Has his 1st colonoscopy scheduled for August 2023 at [facility] Medical History (Updated 06/02/23 @ 09:51 by Adri Ariza MD) Physical exam Mixed hyperlipidemia Morbid obesity Screen for colon cancer Lumbar pain Bilateral knee pain Erectile dysfunction Dyslipidemia Obese Lumbar spondylosis with myelopathy Shortness of breath Lumbar radiculopathy, chronic Surgical History History of tooth extraction History of arthroscopy of right knee H/O right wrist surgery History of ankle surgery Family History Father Heart attack COPD (chronic obstructive pulmonary disease) Mother No problems noted. Maternal Grandmother Lung cancer Maternal Grandfather Lung cancer Social History (Updated 06/02/23 @ 09:23 by Adri Ariza MD) Housing: Other (trailer) Alcohol intake: current Alcohol intake frequency: holidays/special occasions only Alcohol type: hard liquor Patient Tobacco Use Status: Former Tobacco user Tobacco use type: Cigarette e-Cigarette/Vaping Use: Never Used Second Hand Smoke Exposure: No Substance Use Type: Marijuana service: No Current occupational status: unemployed Cognitive needs: No Hearing needs: No Vision needs: No Questionnaire PHQ-9 Over the last 2 weeks, how often have you been bothered by any of the following problems? 1. Little interest or pleasure in doing things: not at all 2. Feeling down, depressed, or hopeless: not at all 3. Trouble falling or staying asleep, or sleeping too much: not at all 4. Feeling tired or having little energy: not at all 5. Poor appetite or overeating: not at all 6. Feeling bad about yourself - or that you are a failure or have let yourself or your family down: not at all 7. Trouble concentrating on things, such as reading the newspaper or watching television: not at all 8. Moving or speaking so slowly that other people could have noticed. Or the opposite - being so fidgety or restless that you have been moving around a lot more than usual: not at all 9. Thoughts that you would be better off or of hurting yourself in some way: not at all Total score: 0 Depression Screening Interpretation: Negative Depression Screening Done: Yes 39787 - PHQ-9 Billing: Yes Source: Developed by Drs. Janusz Keller, Monet Edwards, Tiago Gregg and colleagues, with an educational mickie from [employer]. Thrive Questionnaire Date Thrive assessed: 06/02/23 I am a: Patient What is your living situation today?: I have a steady place to live Within the past 12 months, did the food you bought not last and you didn't have the money to get more?: Never true Within the past 12 months, did you worry whether your food would run out before you got money to buy more?: Never true Do you have trouble paying for medicines?: No Do you have trouble getting transportation to medical appointments?: No Do you have trouble paying your heating and electricity bill?: No Do you have trouble taking care of your child, family member or friend?: No Do you have trouble with day-to-day activities such as bathing, preparing meals, shopping, managing finances, etc.?: No Are you currently unemployed and looking for a job?: No Are you interested in more education?: No Please select the resources that you would like help with: None Currently or been in a relationship where the following occur: no concerns reported THRIVE Score: 0 AUDIT C Alcohol Use Questionnaire (AUDIT-C) 1. How often do you have a drink containing alcohol?: Monthly or less 2. How many drinks containing alcohol do you have on a typical day when you are drinking?: 1 or 2 3. How often do you have six or more drinks on one occasion?: Never Total Score: 1 Score Reviewed/Action Taken: No COBY-7 AMB Questionnaire COBY-7 Date COBY - 7 assessed: 06/02/23 Feeling nervous, anxious, or on edge: 2 = More than half the days Not being able to stop or control worryin = Several days Worrying too much about different things: 2 = More than half the days Trouble relaxin = Not at all Being so restless that it is hard to sit still: 2 = More than half the days Becoming easily annoyed or irritable: 2 = More than half the days Feeling afraid as if something awful might happen: 0 = Not at all Total COBY-7 score (0-4 normal; 5-9 mild; 10-14 moderate; 15-21 severe): 9 Source: Developed by Drs. Janusz Keller, Monet Edwards, Tiago Gregg and colleagues, with an educational mickie from [employer]. COBY-7 Assessment Billing COBY-7 Assessment Tool: COBY-7 Assessment 49393 Review of Systems Const All systems reviewed & are unremarkable except as noted in HPI and below Eyes Reports no additional complaints, Denies change in vision and Denies other visual disturbances Card Denies chest pain at rest, Denies chest pain with activity, Denies edema, Denies irregular heart rhythm, Denies claudication, Denies dyspnea, Denies dyspnea on exertion, Denies orthopnea, Denies paroxysmal nocturnal dyspnea and Denies slow heart rate Resp Denies cough, Denies dyspnea and Denies dyspnea on exertion GI Denies abdominal pain, Denies change in bowel habits, Denies excessive flatus, Denies nausea and Denies vomiting Denies urinary hesitancy, Denies urinary incontinence and Denies urinary urgency Musc Denies atrophy, Denies deformity and Denies limited range of motion Physical exam (Primary Care) Vital Signs: Last Vital Signs BP 120/80 06/02/23 08:59 BMI result Body Mass Index 42.5 Tobacco/Smoking Status: Tobacco use Status Tobacco use date assessed 06/02/23 06/02/23 09:04 Patient Tobacco Use Status Former Tobacco user 06/02/23 09:23 Tobacco use type Cigarette 06/02/23 09:23 e-Cigarette/Vaping Use Never Used 06/02/23 09:23 PHQ-9: PHQ-9 Score PHQ-9: Total score 0 06/02/23 09:25 Depression Screening Interpretation: Negative Thrive Assessment: Date of Thrive Assessment Date Thrive assessed 06/02/23 06/02/23 09:04 Currently or been in a relationship where the following occur: no concerns reported Const Orientation/consciousness: patient oriented x3 [facility] Head: Yes normal to inspection, Yes normocephalic and Yes atraumatic Ears: external ears normal Eyes General: appearance normal, both eyes and all related structures Eyelids: Yes eyelids normal Conjunctivae: conjunctivae normal Neck Neck: Yes normal visual inspection and Yes supple Resp Effort & Inspection: normal respiratory effort Auscultation: clear to auscultation bilaterally Cardio Jugular venous distension: no JVD Rate: regular rate Rhythm: regular rhythm Heart sounds: S1 normal heart sound present and S2 normal heart sound present GI Inspection: Yes normal to inspection Palpation (GI): Soft to palpation and nontender Auscultation: normal bowel sounds Skin General skin exam: no rashes or lesions noted Neuro General: patient oriented x3 and no focal motor deficits Extrem General: Yes full ROM Psych Appearance: grossly normal Results AMB Hemoglobin A1c AMB Hemoglobin A1c 7.3 % Last Edit by CHUY Gary on 06/02/23 09:0 6 Results Reviewed Results Reviewed: Laboratory Last Values Hgb A1c (Clinic) 7.3 % (4.0-6.0) H 06/02/23 09:05 Assessment and Plan Assessment & Plan (1) Physical exam: Code(s): Z00.00 - Encounter for general adult medical examination without abnormal findings Plan: Repeat in a year. (2) Morbid obesity: Code(s): E66.01 - Morbid (severe) obesity due to excess calories Plan: Referred to weight management. BMI goal is less than 30. (3) Diabetes mellitus: Code(s): E11.9 - Type 2 diabetes mellitus without complications Qualifiers: Diabetes mellitus type: type 2 Diabetes mellitus intermediate manager insulin use: without senior care use Diabetes mellitus complication status: with hyperglycemia Qualified Code(s): E11.65 - Type 2 diabetes mellitus with hyperglycemia Plan: Continue Actos. A1c goal is equal or less than 7%. Orders: Orders Lipid Panel 6 Months E78.5 - Hyperlipidemia, unspecified Comprehensive [place]. Panel Fast 6 Months E11.9 - Type 2 diabetes mellitus without complications AMB Hemoglobin A1c Today E11.9 - Type 2 diabetes mellitus without complications Microalbumin, Random (w Creat) 6 Months E11.9 - Type 2 diabetes mellitus without complications Referrals Medical Weight Management Referral E66.01 - Morbid (severe) obesity due to excess calories Coding Level of Care Code Est Pt Prev Care 40-64y(80354) Diagnoses Physical exam Z00.00 Morbid obesity E66.01 Type 2 diabetes mellitus with hyperglycemia, without long-term current use of insulin E11.65 Diabetes mellitus type: type 2 Diabetes mellitus senior care insulin use: without senior care use Diabetes mellitus complication status: with hyperglycemia Additional Codes COBY-7 Assessment Billing - COBY-7 Assessment Tool: COBY-7 Assessment [id number] ([id number]) Time Spent (min) 33
== END 2023-06-02 09:32 | disposition home or self-care (01) ==
PROVIDERS: PCP Internal Medicine; Visit Provider Internal Medicine
DX: Z00.00 Encounter for general adult medical examination without abnormal findings (principal); E66.01 Morbid (severe) obesity due to excess calories; E11.65 Type 2 diabetes mellitus with hyperglycemia; Z68.41 Body mass index [BMI] 40.0-44.9, adult
CPT/HCPCS: 83036; 99396

== ENCOUNTER → 2023-06-09 08:40 | Outpatient (BNVA) | payer OTHER, SELFPAY | PROVIDERS: PCP Internal Medicine; Visit Provider Physician Assistant Surgical ==

== ENCOUNTER 2023-06-28 20:13 | Emergency (ER) | payer OTHER, SELFPAY ==
--- NOTE | ~2023-06-28 | XR_ITS ---
EXAMINATION: XR FOOT, RIGHT CLINICAL INFORMATION: Pain. COMPARISON: Radiograph right foot 12/04/2018. TECHNIQUE: AP, lateral, and oblique views of the right foot. FINDINGS: No fracture or subluxation. Moderate multifocal degenerative arthrosis, progressed compared to 2019 more noticeable in the first tarsometatarsal joint. Small calcaneal spurring. Redemonstration of thickening of the distal Achilles tendon, slightly increased with a stable focal ossification. Diffuse soft tissue swelling. Moderate vascular calcifications. XR/XR foot RT min 3V IMPRESSION: 1. No acute fracture or subluxation. 2. Moderate multifocal degenerative arthrosis, progressed compared to 2019. 3. Redemonstration of thickening of the distal Achilles tendon, slightly increased with a stable focal ossification. Findings suggest Achilles tendinosis. 4. Diffuse soft tissue swelling.
--- NOTE | ~2023-06-28 | US_ITS ---
EXAMINATION: US VENOUS ULTRASOUND WITH DOPPLER LOWER EXTREMITY, RIGHT CLINICAL INFORMATION: Pain and swelling. COMPARISON: 03/13/2019. TECHNIQUE: Ultrasound of the deep veins is performed from the hip to the calf with compression sonography and color and pulse Doppler assessment. Spectral analysis with color-flow imaging is performed. FINDINGS: There is normal venous compression and respiratory variation and augmented flow. The visualized common femoral vein, superficial femoral vein, profunda femoral vein, popliteal vein, and the trifurcation region shows no evidence of deep venous thrombosis. There is no significant popliteal fossa cyst. If the patient's symptoms persist, followup ultrasound in 5 days 7 days might be of value to exclude proximal propagation from a non-visualized calf vein. US/US venous duplex LE RT IMPRESSION: No DVT demonstrated in the right lower extremity.
[2023-06-28 20:50] VITALS: BP 132/72; PULSE 84; RESP 18; TEMP 36.7; O2SAT 96; BMI 42.4
[2023-06-29 00:20] VITALS: BP 121/84; PULSE 95; RESP 17; TEMP 36.3; O2SAT 98
[2023-06-29 04:25] VITALS: BP 128/72; PULSE 85; RESP 18; TEMP 36.7; O2SAT 97
--- NOTE | 2023-06-29 04:38 | ED_ITS ---
HPI - Extremity Injury (Lower) General Chief Complaint: Extremity Injury, Lower Stated Complaint: RT foot pain Time Seen by Provider: 06/29/23 04:33 Source: patient Mode of arrival: ambulatory Limitations: no limitations History of Present Illness HPI Narrative: Patient comes to the emergency room complaining of left lower extremity swelling and pain. Patient states that he has no history of trauma. Patient states that he wore new foods for approximately 16 hours and unsure if that is the reason that his foot hurts. However, patient states that now his foot a lower extremity are swollen. Patient has history of previous DVTs and states this is how it started for him. Patient is no longer on blood thinners. Patient denies chest pain or shortness of breath, no tachycardia. Other foot/lower extremity w ithout pain or swelling. Related Data Home Medications Medication Instructions Recorded Confirmed apremilast 30 mg tablet (Otezla) 30 mg PO BID 06/02/23 06/02/23 multivitamin 1 tab PO DAILY 06/09/23 Previous Rx's Medication Instructions Recorded blood sugar diagnostic (FreeStyle #100 ea 10/05/22 Lite Strips) blood-glucose meter (FreeStyle #1 ea 10/05/22 Lite Meter kit) lancets 28 gauge (FreeStyle #100 ea 10/05/22 Lancets) pioglitazone 15 mg tablet 15 mg PO DAILY 90 days #90 tabs 01/13/23 atorvastatin 40 mg tablet 40 mg PO BEDTIME 90 days #90 tabs 03/28/23 cephalexin 500 mg capsule 500 mg PO BID #14 caps 06/29/23 doxycycline hyclate 100 mg capsule 100 mg PO BID #14 caps 06/29/23 Allergies Allergy/AdvReac Type Severity Reaction Status Date / Time metformin AdvReac Severe Diarrhea Verified 06/28/23 20:50 pepper (genus Capsicum) AdvReac Unknown Verified 06/28/23 20:50 Review of Systems Review of Systems: Constitutional : No Weight loss, No Fever, No Chills, No Night Sweats, No Fatigue, No Malaise ENT/Mouth : No Hearing loss, No Ear Pain, No Nasal Congestion, No Sinus Pain, No Hoarseness, No sore throat, No Rhinorrhea, No Swallowing Difficulty Eyes: No Eye Pain, No Swelling, No Redness, No Foreign Body, No Discharge, No Vision Changes Cardiovascular : No Chest Pain, No SOB, No Dyspnea on Exertion, No Orthopnea, No Edema, No Palpitations Respiratory : No Cough, No Sputum, No Wheezing, No Smoke Exposure, No Dyspnea Gastrointestinal : No Nausea, No Vomiting, No Diarrhea, No Constipation, No abdominal Pain, No Hematochezia, No Melena Genitourinary : no irregular bleeding, No Dysuria, No Urinary Frequency, No Hematuria, No Urinary Incontinence, No Urgency, No Flank Pain, No Urinary Flow Changes, No Hesitancy Musculoskeletal : Complaining of lower extremity foot and ankle swelling on the right Skin : No Skin Lesions, No rash Neuro : No Weakness, No Numbness, No Paresthesias, No Loss of Consciousness, No Dizziness, No Headache Psych : No Anxiety/Panic, No Depression, No SI/HI/AH/VH, No Social Issues, Heme/Lymph: No Bruising, No Bleeding,No Lymphadenopathy Endocrine : No Polyuria, No Polydipsia, No Temperature Intolerance PMFSH Past Medical History Medical History Physical exam Mixed hyperlipidemia Morbid obesity Screen for colon cancer Lumbar pain Bilateral knee pain Erectile dysfunction Dyslipidemia Obese Lumbar spondylosis with myelopathy Shortness of breath Lumbar radiculopathy, chronic Surgical History (Updated 06/09/23 @ 11:06 by Sue Chirinos CMA) Hx of vasectomy History of tooth extraction History of arthroscopy of right knee H/O right wrist surgery History of ankle surgery Family History Family History Father Heart attack COPD (chronic obstructive pulmonary disease) Mother No problems noted. Maternal Grandmother Lung cancer Maternal Grandfather Lung cancer Social History Social History (Updated 06/02/23 @ 09:23 by Adri Ariza MD) Housing: Other (trailer) Alcohol intake: current Alcohol intake frequency: holidays/special occasions only Alcohol type: hard liquor Patient Tobacco Use Status: Former Tobacco user Tobacco use type: Cigarette e-Cigarette/Vaping Use: Never Used Second Hand Smoke Exposure: No Substance Use Type: Marijuana Advance Directives: No Advance Directives Information Provided: Yes service: No Current occupational status: unemployed Cognitive needs: No Hearing needs: No Vision needs: No Physical Exam Vital Signs: Vital Signs: Last Vital Signs Temp 98.0 F 06/29/23 04:25 Pulse 85 06/29/23 04:25 Resp 18 06/29/23 04:25 BP 128/72 06/29/23 04:25 Pulse Ox 97 06/29/23 04:25 O2 Del Method Room Air 06/29/23 04:25 BMI result Body Mass Index 42.4 Const: Other: Appearance: Alert. Oriented X3. No acute distress. Eyes: Pupils equal, round and reactive to light. ENT: Pharynx normal. Neck: Normal inspection. Neck supple. No lymph nodes noted. No crepitus CVS: Normal heart rate and rhythm. Pulses normal. Normal S1 and S2 Respiratory: No respiratory distress. Breath sounds normal. No Wheezing. No rales Abdomen: Soft and nontender. No rigidity. No distention. Skin: Skin warm and dry. Normal skin color. Normal skin turgor. Extremities: Right foot and distal lower extremity on the right +2 edema, very mild erythema around the dorsal aspect of the right foot. No calf pain Neuro: Oriented X 3. No motor deficit. No sensory deficit. Moving all extremities. No slurred speech. CN 2 through 12 grossly intact Psych: calm, cooperative, normal affect Course Course Course Narrative: -patient likely has cellulitis versus DVT. Patient states that when he was diagnosed with DVT, this was his initial presentation, swollen foot and pain. -ultrasound pending Medical Decision Making Medical Decision Making MDM Narrative: -my interpretation of x-ray of the right foot: No fracture or subluxation. -my interpretation of ultrasound of the lower extremity, no obvious DVT. -discussed with the patient to use compression stockings. Patient's skin is a bit erythematous, we will do a course of antibiotics. Differential Diagnosis Differential Diagnoses: The differential diagnosis associated with the presentation includes (DVT, cellulitis) Admission/Observation Consideration of admission/observation: Escalation of care including admission/observation considered (Given patient's past medical history and presentation, admission considered) Independent Interpretation I performed an independent interpretation of an: Plain X-Ray and Ultrasound Radiology Impression Discussion of test interpretation with radiology: I have reviewed the radiologist's reading. Radiologist Impression: IMPRESSION: 1. No acute fracture or subluxation. 2. Moderate multifocal degenerative arthrosis, progressed compared to 2019. 3. Redemonstration of thickening of the distal Achilles tendon, slightly increased with a stable focal ossification. Findings suggest Achilles tendinosis. 4. Diffuse soft tissue swelling. FINDINGS: There is normal venous compression and respiratory variation and augmented flow. The visualized common femoral vein, superficial femoral vein, profunda femoral vein, popliteal vein, and the trifurcation region shows no evidence of deep venous thrombosis. There is no significant popliteal fossa cyst. If the patient's symptoms persist, followup ultrasound in 5 days 7 days might be of value to exclude proximal propagation from a non-visualized calf vein. US/US venous duplex LE RT IMPRESSION: No DVT demonstrated in the right lower extremity. Discharge Plan Discharge Clinical Impression: Cellulitis Patient Disposition: Home, Self-Care Instructions: Cellulitis (ED) Additional Instructions: Please follow-up with your primary care physician tomorrow. If you have any worsening or new symptoms, please return to the emergency room or call 911 Prescriptions: New cephalexin 500 mg capsule 500 mg PO BID Qty: 14 0RF doxycycline hyclate 100 mg capsule 100 mg PO BID Qty: 14 0RF No Action atorvastatin 40 mg tablet 40 mg PO BEDTIME 90 Days Qty: 90 1RF (DME) FreeStyle Lite Strips Strip See Rx Instructions .Route Qty: 100 2RF Rx Instructions: Use 1 test strip once a day (DME) blood-glucose meter [FreeStyle Lite Meter] Kit See Rx Instructions .Route Qty: 1 0RF Rx Instructions: As directed (DME) lancets [FreeStyle Lancets] 28 gauge misc See Rx Instructions .Route Qty: 100 1RF Rx Instructions: Use 1 lancet once a day Otezla 30 mg tablet 30 mg PO BID pioglitazone 15 mg tablet 15 mg PO DAILY 90 Days Qty: 90 1RF multivitamin Tablet 1 tab PO DAILY
[2023-06-29 06:35] VITALS: BP 142/85; PULSE 86; RESP 18; TEMP 36.6; O2SAT 96
== END 2023-06-29 06:39 | disposition home or self-care (01) ==
PROVIDERS: Emergency Provider Emergency Medicine
DX: L03.115 Cellulitis of right lower limb (principal); M79.671 Pain in right foot; R60.0 Localized edema
CPT/HCPCS: 73630; 93971; 99283; 99284

== ENCOUNTER 2023-06-30 08:16 | Outpatient (REF) | payer OTHER, SELFPAY ==
[2023-06-30 12:00] LABS: Uric Acid 7.1 mg/dL (3.4-7.0)
== END 2023-06-30 08:17 | disposition home or self-care (01) ==
LOC: HO.HMGCLDS 08:16
PROVIDERS: PCP Internal Medicine; Visit Provider Internal Medicine
DX: M10.9 Gout, unspecified (principal)
CPT/HCPCS: 36415; 84550

== ENCOUNTER 2023-09-01 07:44 | Day surgery (SDC) | payer OTHER, SELFPAY ==
[2023-08-30 13:52] VITALS: BMI 41.3
--- NOTE | 2023-08-31 09:39 | HO.ANESPROP2 ---
HPI - Anesthesia Eval Consult details Narrative: 58yo M for Colonoscopy PMFSH Active Problems Active Problems: All Active Problems Right foot pain (Acute) Hyperlipidemia LDL goal <70 (Acute) Occult blood positive stool (Acute) Diabetes mellitus (Acute) Skin lesion (Acute) Eyelid lesion (Acute) Irregular heart rate (Acute) Tachycardia (Acute) Hemorrhoids (Acute) Physical exam (Acute) Mixed hyperlipidemia (Acute) Morbid obesity (Acute) Screen for colon cancer (Acute) Osteoarthritis of right knee (Acute) Osteoarthritis of left knee (Acute) Lumbar pain (Acute) Bilateral knee pain (Acute) Erectile dysfunction (Acute) Dyslipidemia (Acute) Obese (Acute) Lumbar spondylosis with myelopathy (Acute) Shortness of breath (Acute) Past Medical History Medical History Physical exam Mixed hyperlipidemia Morbid obesity Screen for colon cancer Lumbar pain Bilateral knee pain Erectile dysfunction Dyslipidemia Obese Lumbar spondylosis with myelopathy Shortness of breath Lumbar radiculopathy, chronic Family History Family History Father Heart attack COPD (chronic obstructive pulmonary disease) Mother No problems noted. Maternal Grandmother Lung cancer Maternal Grandfather Lung cancer Surgical History Surgical History Hx of vasectomy History of tooth extraction History of arthroscopy of right knee H/O right wrist surgery History of ankle surgery Social History Social History Housing: Other (trailer) Alcohol intake: current Alcohol intake frequency: holidays/special occasions only Alcohol type: hard liquor Patient Tobacco Use Status: Former Tobacco user Tobacco use type: Cigarette e-Cigarette/Vaping Use: Never Used Second Hand Smoke Exposure: No Use of substances other than those prescribed or required for medical reasons: Yes Substance Use Type: Marijuana Substance Use Frequency: Daily Are you DNR?: No Advance Directives: No Advance Directives Information Provided: Yes service: No Current occupational status: unemployed Cognitive needs: No Hearing needs: No Vision needs: No Meds Allergies Allergy/AdvReac Type Severity Reaction Status Date / Time metformin AdvReac Severe Diarrhea Verified 06/28/23 20:50 pepper (genus Capsicum) AdvReac Unknown Unknown Verified 08/30/23 13:52 Home Medications ?Medication ?Instructions ?Recorded ?Confirmed ?Last Taken ?Type apremilast 30 mg tablet (Otezla) 30 mg PO BID 06/02/23 08/30/23 Unknown History multivitamin 1 tab PO DAILY 06/09/23 08/30/23 Unknown History Exam Height,Weight and Vital Signs: Height 5 ft 11 in Weight 134.263 kg Pertinent Lab Results Pertinent Lab Results: Laboratory Tests 03/23/23 08:38 WBC 7.0 Hgb 16.1 Hct 48.5 Plt Count 212 Sodium 140 Potassium 4.1 Chloride 106 Carbon Dioxide 27 BUN 15 Creatinine 1.01 Assessment and Plan Assessment Anesthesia Assessment: Chart Reviewed
[2023-09-01 07:59] LABS: Glucose, Whole Blood 147 mg/dL (60-115)
[2023-09-01 08:00] VITALS: BMI 40.5
--- NOTE | 2023-09-01 08:09 | P.CONAN_ITS ---
[facility] Active Problems Active Problems: All Active Problems Right foot pain (Acute) Hyperlipidemia LDL goal <70 (Acute) Occult blood positive stool (Acute) Diabetes mellitus (Acute) Skin lesion (Acute) Eyelid lesion (Acute) Irregular heart rate (Acute) Tachycardia (Acute) Hemorrhoids (Acute) Physical exam (Acute) Mixed hyperlipidemia (Acute) Morbid obesity (Acute) Screen for colon cancer (Acute) Osteoarthritis of right knee (Acute) Osteoarthritis of left knee (Acute) Lumbar pain (Acute) Bilateral knee pain (Acute) Erectile dysfunction (Acute) Dyslipidemia (Acute) Obese (Acute) Lumbar spondylosis with myelopathy (Acute) Shortness of breath (Acute) Past Medical History Medical History Physical exam Mixed hyperlipidemia Morbid obesity Screen for colon cancer Lumbar pain Bilateral knee pain Erectile dysfunction Dyslipidemia Obese Lumbar spondylosis with myelopathy Shortness of breath Lumbar radiculopathy, chronic Functional capacity: independent ambulation Family History Family History Father Heart attack COPD (chronic obstructive pulmonary disease) Mother No problems noted. Maternal Grandmother Lung cancer Maternal Grandfather Lung cancer Family history of problems with anesthesia: No Surgical History Surgical History Hx of vasectomy History of tooth extraction History of arthroscopy of right knee H/O right wrist surgery History of ankle surgery History of Problems with Anesthesia: No Social History Social History Housing: Other (trailer) Alcohol intake: current Alcohol intake frequency: holidays/special occasions only Alcohol type: hard liquor Patient Tobacco Use Status: Former Tobacco user Tobacco use type: Cigarette e-Cigarette/Vaping Use: Never Used Second Hand Smoke Exposure: No Use of substances other than those prescribed or required for medical reasons: Yes Substance Use Type: Marijuana Substance Use Frequency: Daily Are you DNR?: No Advance Directives: No Advance Directives Information Provided: Yes service: No Current occupational status: unemployed Cognitive needs: No Hearing needs: No Vision needs: No Meds Allergies Allergy/AdvReac Type Severity Reaction Status Date / Time metformin AdvReac Severe Diarrhea Verified 06/28/23 20:50 pepper (genus Capsicum) AdvReac Unknown Unknown Verified 08/30/23 13:52 Active Medications: Current Medications Lactated Ringer's (Lr) 1,000 mls @ 100 mls/hr IVCONT .Q10H JIM Sodium Biphosphate/Sodium Phosphate (Sodium Phosphate,Cataño-Dibasic 133 Ml Enema) 133 ml IN ONCE PRN PRN Reason: Poor Colonoscopy Prep Results Home Medications ?Medication ?Instructions ?Recorded ?Confirmed ?Last Taken ?Type apremilast 30 mg tablet (Otezla) 30 mg PO BID 06/02/23 08/30/23 Unknown History multivitamin 1 tab PO DAILY 06/09/23 08/30/23 Unknown History Exam Height,Weight and Vital Signs: Height 5 ft 11 in Weight 131.655 kg Pertinent Lab Results Pertinent Lab Results: Laboratory Tests 09/01/23 07:55 POC Glucose 147 H Airway Mallampati Class: II TM Dist: >3cm Neck ROM: Full Heart: RRR Lungs: CTA Assessment and Plan Assessment Anesthesia Assessment: Anesthesia Plan Discussed and Smoking Cess. Discussed Final Anesthetic Review Family History of Problems with Anesthesia: No History of Problems with Anesthesia: No ASA Class: III Final Preanesthetic Review: Meds/Allgs Chart Reviewed, Consent Obtained/Reviewed and Anes Risks/Benef Reviewed Patient Risk: Intermediate Procedure Risk: Low Anesthetic Plan Anesthetic Plan: MAC: Disposition: Standard PACU
[2023-09-01] MEDS: Lactated Ringers 1,000 ML 100 ML IVCONT (08:27)
[2023-09-01 08:29] VITALS: BP 125/77; PULSE 87; RESP 16; TEMP 36.5; O2SAT 95
[2023-09-01 10:12] VITALS: BP 115/70; PULSE 95; RESP 16; TEMP 36.3
--- NOTE | 2023-09-01 10:13 | P.BOP_ITS ---
Brief Operative Note Date of Service: 09/01/23 Pre-op diagnosis: Screening Post-op diagnosis: other (Diverticulosis) Procedure: Colonoscopy to the cecum and TI Surgeon: Janusz Esparza MD Anesthesia: MAC Was an School Transportation Supervisor used for this Procedure?: No Estimated blood loss (mL): 0 Pathology: none sent Condition: stable Disposition: PACU
[2023-09-01 10:26] VITALS: BP 118/70; PULSE 81; RESP 17; TEMP 36.3; O2SAT 95
--- NOTE | 2023-09-01 10:47 | OP_ITS ---
DATE OF SERVICE: 09/01/2023 SURGEON: Janusz Esparza MD INDICATIONS: The patient presents for evaluation of colorectal cancer screening. Full consent has been obtained from him for this, including risks of bleeding and perforation. PREOPERATIVE DIAGNOSIS: Colorectal cancer screening. POSTOPERATIVE DIAGNOSIS: PROCEDURE PERFORMED: Colonoscopy to cecum and terminal ileum. ESTIMATED BLOOD LOSS: COMPLICATIONS: ANESTHESIA: Monitored anesthesia care. ASSISTANTS: SPECIMENS: POSTOPERATIVE DIAGNOSES: Colorectal cancer screening, sigmoid diverticulosis, and internal hemorrhoids. DESCRIPTION OF PROCEDURE: The patient was placed in the left lateral decubitus position. The digital rectal exam revealed no abnormalities. The Olympus video pediatric colonoscope was then entered into the rectum and advanced easily to the cecum. Once in the cecum, I did identify normal-appearing cecal pouch with appendiceal orifice and a normal-appearing ileocecal valve. The terminal ileum was cannulated and appeared normal. Scope was withdrawn back in the colon. The entire cecum and ileocecal valve appeared normal. The scope was slowly withdrawn assessing all mucosal surfaces carefully. Preparation was excellent. I did not visualize any sign of polyps, colitis, nor angiodysplasia. There was a mild amount of sigmoid diverticulosis. In the rectum, scope was retroflexed, visualizing internal hemorrhoids, but no other pathology. The rectal mucosa appeared normal. The scope was straightened and withdrawn from the patient. He tolerated the procedure well and was returned to the recovery area in stable condition. IMPRESSION: 1. Sigmoid diverticulosis. 2. Internal hemorrhoids. PLAN: Given today's negative exam and negative family history, I would recommend a followup colonoscopy in 10 years for further screening. He will, otherwise, see me on a p.r.n. basis. MD LEVI Scherer/REJI / [phone]
--- NOTE | 2023-09-01 16:49 | HO.POSTANES ---
Post Anesthesia Evaluation Post Anesthesia Evaluation Date of Service: 09/01/23 Vital Signs: Vital Signs Temp Pulse Resp BP Pulse Ox O2 Del Method 09/01/23 10:26 97.3 F 81 17 118/70 95 Room Air 09/01/23 10:12 97.4 F 95 16 115/70 09/01/23 08:29 97.7 F 87 16 125/77 95 Room Air Anesthesia: Monitored Mental Status: Awake Pain Control: Satisfactory Nausea/Vomiting: None Hydration: Adequate Anesthesia-Related Issues: No Anes. Related Issues
== END 2023-09-01 10:59 | disposition home or self-care (01) ==
PROVIDERS: PCP Internal Medicine; Visit Provider Internal Medicine
PROC: 0DJD8ZZ Inspection of Lower Intestinal Tract, Via Natural or Artificial Opening Endoscopic (ICD-10-PCS; CPT 45378; principal; 2023-09-01 09:20)
DX: Z12.11 Encounter for screening for malignant neoplasm of colon (principal); K57.30 Diverticulosis of large intestine without perforation or abscess without bleeding; K64.8 Other hemorrhoids; E11.9 Type 2 diabetes mellitus without complications; E78.5 Hyperlipidemia, unspecified; Z86.711 Personal history of pulmonary embolism; Z87.891 Personal history of nicotine dependence; Z79.02 Long term (current) use of antithrombotics/antiplatelets; Z79.84 Long term (current) use of oral hypoglycemic drugs
CPT/HCPCS: 45378; 82947; J2704

== ENCOUNTER 2024-01-23 18:48 | Emergency (ER) | payer OTHER, SELFPAY ==
[2024-01-23 19:03] VITALS: BP 128/84; PULSE 100; RESP 19; TEMP 36.7; O2SAT 95; BMI 41.0
--- NOTE | 2024-01-23 19:06 | ED_ITS ---
HPI - General Adult General Chief complaint: General Medical Stated complaint: chills,aches Time Seen by Provider: 01/23/24 22:55 Source: patient, RN notes reviewed and old records reviewed Mode of arrival: ambulatory Limitations: no limitations History of Present Illness ED Provider: Diana HPI narrative: 59-year-old male presents with increased urinary frequency for the past 4 days. He says that since he has been urinating as often as every 30 minutes, denies dysuria, hematuria, suprapubic discomfort. Over the same course of time, he has experienced increased appetite, polydipsia, increased dizziness. He also endorses some blurry vision that has resolved at this time, and has chills beginning today. He says that since the time of his colonoscopy in August, he has not been taking his medications. These medications include pioglitazone 15 mg, atorvastatin and Otezla. He denies history of similar episodes, was told that his A1c was improving. He does not take his blood sugar at home, and says he was told he is prediabetic. He has no other complaints at this time. Related Data Home Medications ?Medication ?Instructions ?Recorded ?Confirmed apremilast 30 mg tablet (Otezla) 30 mg PO BID 06/02/23 08/30/23 multivitamin 1 tab PO DAILY 06/09/23 08/30/23 Previous Rx's ?Medication ?Instructions ?Recorded blood sugar diagnostic (FreeStyle #100 ea 10/05/22 Lite Strips) blood-glucose meter (FreeStyle #1 ea 10/05/22 Lite Meter kit) lancets 28 gauge (FreeStyle #100 ea 10/05/22 Lancets) pioglitazone 15 mg tablet 15 mg PO DAILY 90 days #90 tabs 01/13/23 atorvastatin 40 mg tablet 40 mg PO BEDTIME 90 days #90 tabs 03/28/23 atorvastatin 40 mg tablet 40 mg PO BEDTIME #90 tabs 01/23/24 pioglitazone 15 mg tablet 15 mg PO DAILY #90 tabs 01/23/24 Allergies Allergy/AdvReac Type Severity Reaction Status Date / Time metformin AdvReac Severe Diarrhea Verified 01/23/24 19:05 pepper (genus Capsicum) AdvReac Unknown Unknown Verified 01/23/24 19:05 Review of Systems 2 Constitutional: Constitutional: Reports as per HPI, Reports chills, Reports fatigue, Reports fever(s), Denies headache(s) and Reports increased appetite Eyes: Eyes: Reports blurry vision ENT: Denies headache(s) Cardiovascular: Cardiovascular: Denies chest pain and Denies dyspnea Respiratory: Respiratory: Denies cough and Denies dyspnea Gastrointestinal: Gastrointestinal: Denies abdominal pain, Denies constipation and Denies vomiting Genitourinary: Genitourinary: Reports as per HPI, Denies hematuria, Denies difficulty urinating, Denies dysuria, Denies flank pain, Reports urinary frequency, Denies urinary hesitancy and Denies urinary urgency Neurologic: Denies headache(s) and Denies focal weakness Endocrine: Endocrine: Reports fatigue PMFSH Past Medical History Medical History Physical exam Mixed hyperlipidemia Morbid obesity Screen for colon cancer Lumbar pain Bilateral knee pain Erectile dysfunction Dyslipidemia Obese Lumbar spondylosis with myelopathy Shortness of breath Lumbar radiculopathy, chronic Surgical History Hx of vasectomy History of tooth extraction History of arthroscopy of right knee H/O right wrist surgery History of ankle surgery Family History Family History Father Heart attack COPD (chronic obstructive pulmonary disease) Mother No problems noted. Maternal Grandmother Lung cancer Maternal Grandfather Lung cancer Social History Social History Housing: Other Alcohol intake: current Alcohol intake frequency: holidays/special occasions only Alcohol type: hard liquor Patient Tobacco Use Status: Former Tobacco user Tobacco use type: Cigarette e-Cigarette/Vaping Use: Never Used Second Hand Smoke Exposure: No Substance Use Type: Marijuana Advance Directives: No Advance Directives Information Provided: No Do you have a plan to hurt others: No Plan service: No Current occupational status: unemployed Cognitive needs: No Hearing needs: No Vision needs: No Physical Exam ED Vital Signs: Vital Signs - 24 hr 01/23/24 21:51 01/24/24 00:03 01/24/24 00:33 Temperature 98.3 F 98.0 F 98.0 F Pulse Rate 83 78 78 Respiratory Rate 20 20 20 Blood Pressure 123/84 129/76 129/76 Pulse Oximetry 97 97 97 Oxygen Delivery Method Room Air Room Air Room Air BMI result Body Mass Index 41.0 Const General: healthy appearing, comfortable, no acute distress, alert and awake Nutritional Appearance: well nourished Orientation/consciousness: patient oriented x3 HENMT Head: Yes normocephalic and Yes atraumatic Throat: Yes posterior oropharynx normal Eyes Eyelids: Yes eyelids normal Conjunctivae: conjunctivae normal Sclerae: sclerae normal Corneas: corneas normal Pupils: Equal, round and reactive pupils present EOM: EOMs intact bilaterally Neck Neck: Yes full ROM Resp Effort & Inspection: normal respiratory effort, able to speak in complete sentences, no audible wheezes and not labored Auscultation: clear to auscultation bilaterally Cardio Rate: regular rate Rhythm: regular rhythm GI Inspection: No distended Palpation (GI): Soft to palpation, not firm, nontender, no guarding and not rigid Auscultation: normoactive bowel sounds Skin General skin exam: no rashes or lesions noted and elasticity normal Neuro General: patient oriented x3 Cranial nerves: Yes CN's II-XII intact bilaterally, Yes Equal, round and reactive pupils present and Yes Bilaterally intact EOM present Cognition (Neuro): normal cognition Extrem Other: Moving all extremities well without any obvious deformities Course Course Course Narrative: RME: DOne by KAM Georges. 59 yold male presents to the ED for increase thirst, increase urinary frequency, chills, and bodyaches. Patient states borderline diabetic. Labs ordered. Medications Administered Discontinued Medications Generic Name Dose Route Start Last Admin Trade Name Wanderq PRN Reason Stop Dose Admin Pioglitazone HCl 15 mg 01/23/24 23:28 01/24/24 00:32 Pioglitazone Hcl 15 Mg Tablet PO 01/23/24 23:29 15 mg ONCE ONE Administration Medical Decision Making Medical Decision Making MDM Narrative: 59-year-old male with known history of diabetes presents for evaluation of urinary frequency. The patient's glucose is elevated to 84, he has glucose in his urine and high specific gravity. His urinalysis shows no evidence of UTI or hematuria. His urinary frequency is most likely related to his hyperglycemia. There was no evidence of DKA. Will restart the patient on his pioglitazone. He will be discharged to follow up with his PCP. I did refill his atorvastatin and pioglitazone. Differential Diagnosis Differential Diagnoses: The differential diagnosis associated with the presentation includes Hyperglycemia DKA Medication noncompliance Dehydration UTI Prostatitis BPH Lab Data MDM Lab Attestation statement: I reviewed the patient's lab results. No leukocytosis or anemia. Normal platelet count. No electrolyte abnormalities. Random glucose elevated to 284. There is no evidence of DKA 01/23/24 19:41 01/23/24 19:41 Labs: Lab Results 01/23/24 01/23/24 01/23/24 Range/Units 19:40 19:41 22:07 WBC 6.3 (4.8-10.8) X10*3/uL RBC 5.52 (4.60-5.80) X10*6/uL Hgb 16.4 (14.0-18.0) g/dl Hct 46.2 (42.0-52.0) % MCV 83.7 (80.0-98.0) fL MCH 29.7 (27.0-33.0) pg MCHC 35.5 (31.0-36.0) g/dl RDW 12.6 (11.0-16.0) % Plt Count 193 (160-400) X10*3/uL MPV 10.2 (9.4-12.4) fL Immature Gran % (Auto) 0.5 H (0.0-0.4) % Neut % (Auto) 47.8 (45-73) % Lymph % (Auto) 37.1 (20-40) % [place] % (Auto) 8.7 (2-11) % Eos % (Auto) 5.4 H (0-4) % Baso % (Auto) 0.5 (0-2) % Lymph # (Auto) 2.4 (1.2-4.9) X10*3/uL [place] # (Auto) 0.6 (0.1-1.2) X10*3/uL Eos # (Auto) 0.3 (0.0-0.4) X10*3/uL Baso # (Auto) 0.0 (0.0-0.2) X10*3/uL Abs Immat Gran (auto) 0.03 (0.00-0.03) X10*3/uL Absolute Neuts (auto) 3.0 (2.0-8.3) x10*3/uL Absolute Nucleated RBC 0.000 (0.0-0.012) X10*3/uL Nucleated RBC % (auto) 0.0 (0.0-0.2) /100WBC Sodium 138 (135-145) mmol/L Potassium 3.9 (3.3-5.1) mmol/L Chloride 105 (96-108) mmol/L Carbon Dioxide 24 (22-29) mmol/L Anion Gap 13 (12-20) BUN 14 (9-16) mg/dL Creatinine 0.99 (0.5-1.4) mg/dL Estim Creat Clear Calc 114.7 Estimated GFR > 60 POC Glucose 272 H (60-115) mg/dL Random Glucose 284 H (60-115) mg/dL Calcium 8.4 D (8.4-10.2) mg/dL Total Bilirubin 0.4 (0.0-1.0) mg/dL AST 19 (5-37) U/L ALT 38 (0-40) U/L Alkaline Phosphatase 75 (39-117) U/L Total Protein 6.1 L (6.5-8.0) g/dL Albumin 3.6 (3.5-5.0) g/dL Beta-Hydroxybutyrate 0.18 (0.02-0.27) mmol/L Urine Color Yellow Urine Appearance Clear Urine pH 6.0 (5.0-9.0) Ur Specific [place] >= 1.030 H (1.005-1.025) Urine Protein Negative (Neg-Trace) mg/dL Urine Glucose (UA) >=1000 H (Negative) mg/dL Urine Ketones Trace (Negative) mg/dL Urine Blood Negative (Negative) Urine Nitrite Negative (Negative) Ur Leukocyte Esterase Negative (Negative) Urine RBC 0-2 (0-2) /HPF Urine WBC 0-5 (0-5) /HPF Ur Squamous Epith Cells 0-2 (0-2) /HPF Urine Bacteria None Seen (None Seen) Hyaline Casts 0-2 (0-2) /LPF Influenza Type A (PCR) NEGATIVE (Negative) Influenza Type B (PCR) NEGATIVE (Negative) RSV RNA Qual (PCR) NEGATIVE (Negative) SARS-CoV-2 RNA (RT-PCR) NEGATIVE (Negative) Discharge Plan Discharge Clinical Impression: Acute hyperglycemia Patient Disposition: Home, Self-Care Instructions: Diabetic Hyperglycemia (ED) Additional Instructions: Your blood work showed an elevated glucose to 284. This is consistent with diabetes I recommend that you restart your pioglitazone at 15 mg daily Call your primary doctor to tell them that you were in the emergency department for high blood sugar I will also recommend restarting your atorvastatin Prescriptions: New pioglitazone 15 mg tablet 15 mg PO DAILY Qty: 90 0RF atorvastatin 40 mg tablet 40 mg PO BEDTIME Qty: 90 0RF No Action atorvastatin 40 mg tablet 40 mg PO BEDTIME 90 Days Qty: 90 1RF (DME) FreeStyle Lite Strips Strip See Rx Instructions .Route Qty: 100 2RF Rx Instructions: Use 1 test strip once a day (DME) blood-glucose meter [FreeStyle Lite Meter] Kit See Rx Instructions .Route Qty: 1 0RF Rx Instructions: As directed (DME) lancets [FreeStyle Lancets] 28 gauge misc See Rx Instructions .Route Qty: 100 1RF Rx Instructions: Use 1 lancet once a day Otezla 30 mg tablet 30 mg PO BID pioglitazone 15 mg tablet 15 mg PO DAILY 90 Days Qty: 90 1RF multivitamin Tablet 1 tab PO DAILY Interventions: ED Discharge Assessment Last Done: 01/24/24 00:33 Discharge Date/Time: 01/24/24 00:33 Print Language: Tristanian
[2024-01-23 19:48] LABS: MANUAL DIFF FLAG NO
[2024-01-23 19:49] LABS: Basophils Percent Auto 0.5 % (0-2); Eosinophils Absolute Auto 0.3 X10*3/uL (0.0-0.4); Eosinophils Percent Auto 5.4 % (0-4); Hematocrit 46.2 % (42.0-52.0); Hemoglobin 16.4 g/dl (14.0-18.0); Imm Gran Abs Auto 0.03 X10*3/uL (0.00-0.03); Imm Gran Pct Auto 0.5 % (0.0-0.4); Lymphocytes Absolute Auto 2.4 X10*3/uL (1.2-4.9); Lymphocytes Percent Auto 37.1 % (20-40); Mean Corpuscular HGB Conc 35.5 g/dl (31.0-36.0); Mean Corpuscular Hemoglobin 29.7 pg (27.0-33.0); Mean Corpuscular Volume 83.7 fL (80.0-98.0); Mean Platelet Volume 10.2 fL (9.4-12.4); Monocytes Absolute Auto 0.6 X10*3/uL (0.1-1.2); Monocytes Percent Auto 8.7 % (2-11); Neutrophils Percent Auto 47.8 % (45-73); Platelet Count 193 X10*3/uL (160-400); Red Blood Count 5.52 X10*6/uL (4.60-5.80); Red Cell Distribution Width 12.6 % (11.0-16.0); White Blood Count 6.3 X10*3/uL (4.8-10.8)
[2024-01-23 20:05] LABS: Beta-Hydroxybutyrate 0.18 mmol/L (0.02-0.27)
[2024-01-23 20:07] LABS: Alanine Aminotransferase 38 U/L (0-40); Albumin Level 3.6 g/dL (3.5-5.0); Alkaline Phosphatase 75 U/L (39-117); Anion Gap 13 (12-20); Aspartate Amino Transferase 19 U/L (5-37); Bilirubin Total 0.4 mg/dL (0.0-1.0); Blood Urea Nitrogen 14 mg/dL (9-16); Calcium 8.4 mg/dL (8.4-10.2); Carbon Dioxide 24 mmol/L (22-29); Chloride 105 mmol/L (96-108); Creatinine Clr Calc Pharmacy 114.7; Estimated Glomerular Filt Rate > 60; Glucose Random 284 mg/dL (60-115); Potassium 3.9 mmol/L (3.3-5.1); Sodium 138 mmol/L (135-145); Total Protein 6.1 g/dL (6.5-8.0)
[2024-01-23 20:08] LABS: Glucose, Whole Blood 272 mg/dL (60-115)
[2024-01-23 20:26] LABS: Influenza A PCR NEGATIVE (Negative); Influenza B PCR NEGATIVE (Negative); Resp Syncy Virus RNA Qual PCR NEGATIVE (Negative); SARS COV2 PCR INHOUSE NEGATIVE (Negative)
[2024-01-23 21:51] VITALS: BP 123/84; PULSE 83; RESP 20; TEMP 36.8; O2SAT 97
[2024-01-23 22:15] LABS: Appearance Urine Clear; Color Urine Yellow; Glucose Urine UA >=1000 mg/dL (Negative); Leukocyte Esterase Urine Negative (Negative); Nitrite Urine Negative (Negative); Specific Gravity - Urine >= 1.030 (1.005-1.025); UMIC TRIGGER UACC YES; Urine Blood Negative (Negative); Urine Ketones Trace mg/dL (Negative); Urine Protein Negative (Neg-Trace)
[2024-01-23 23:08] LABS: Bacteria Urine None Seen (None Seen); Hyaline Casts Urine 0-2 /LPF (0-2); RBC Urine 0-2 /HPF (0-2); Squamous Epithelial Cell Urine 0-2 /HPF (0-2); WBC Urine 0-5 /HPF (0-5)
[2024-01-24 00:03] VITALS: BP 129/76; PULSE 78; RESP 20; TEMP 36.7; O2SAT 97
[2024-01-24 00:33] VITALS: BP 129/76; PULSE 78; RESP 20; TEMP 36.7; O2SAT 97
== END 2024-01-24 00:33 | disposition home or self-care (01) ==
PROVIDERS: Physician Assistant; Emergency Provider Emergency Medicine; PCP Internal Medicine
DX: M79.10 Myalgia, unspecified site (principal); R35.0 Frequency of micturition; H53.8 Other visual disturbances; E11.65 Type 2 diabetes mellitus with hyperglycemia; Z79.84 Long term (current) use of oral hypoglycemic drugs; Z03.818 Encounter for observation for suspected exposure to other biological agents ruled out; Z79.899 Other long term (current) drug therapy
CPT/HCPCS: 0241U; 36415; 80053; 81001; 82010; 82947; 85025; 99283

== ENCOUNTER 2024-04-25 14:37 | Outpatient (AMB) | payer OTHER, SELFPAY ==
--- NOTE | 2024-04-25 14:48 | A.OFFPC_ITS ---
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 Accompanied by: Self / Same As Patient Allergies metformin Adverse Reaction (Severe, Verified 04/25/24 15:21) Diarrhea pepper (genus Capsicum) Adverse Reaction (Unknown, Verified 04/25/24 15:21) Unknown Medication List - Last Reconciled 04/25/24 by Adri Ariza MD apremilast (Otezla) 30 mg PO BID atorvastatin 40 mg PO BEDTIME blood sugar diagnostic (FreeStyle Lite Strips) Use 1 test strip once a day blood-glucose meter (FreeStyle Lite Meter kit) As directed lancets (FreeStyle Lancets) Use 1 lancet once a day multivitamin 1 tab PO DAILY pioglitazone 15 mg PO DAILY Tobacco use date assessed: 04/25/24 Dental Screening Dental Screen Date: 04/25/24 Did you have a dental visit in the last 12 months?: Yes Did you have a dental problem in the last 6 months where you did not have access to dental care?: No Was dental information given to patient?: Patient has dentist HPI HPI Comments History of Present Illness Details This is a 59-year-old male with diabetes mellitus type 2, hypertension, hyperlipidemia and morbid obesity that comes today for follow-up on his conditions. A1c has slightly increased and I will increase Actos from 50 mg to 30 mg. Denies any chest pain or shortness on breath. Blood pressure elevated and will be recheck in 3 weeks by nurse navigator. Last LDL was not on goal and this will be repeated. He is morbidly obese with a BMI of 40.6 and was advised to do diet and exercise to reach BMI goal less than 30. [facility] Medical History (Updated 04/25/24 @ 21:26 by Adri Ariza MD) Physical exam Mixed hyperlipidemia Morbid obesity Screen for colon cancer Lumbar pain Bilateral knee pain Erectile dysfunction Dyslipidemia Obese Lumbar spondylosis with myelopathy Shortness of breath Lumbar radiculopathy, chronic Surgical History Hx of vasectomy History of tooth extraction History of arthroscopy of right knee H/O right wrist surgery History of ankle surgery Family History Father Heart attack COPD (chronic obstructive pulmonary disease) Mother No problems noted. Maternal Grandmother Lung cancer Maternal Grandfather Lung cancer Social History Housing: Other Alcohol intake: current Alcohol intake frequency: holidays/special occasions only Alcohol type: hard liquor Patient Tobacco Use Status: Former Tobacco user Tobacco use type: Cigarette e-Cigarette/Vaping Use: Never Used Second Hand Smoke Exposure: No Substance Use Type: Marijuana service: No Current occupational status: unemployed Cognitive needs: No Hearing needs: No Vision needs: No Questionnaire PHQ-9 Over the last 2 weeks, how often have you been bothered by any of the following problems? 1. Little interest or pleasure in doing things: not at all 2. Feeling down, depressed, or hopeless: several days 3. Trouble falling or staying asleep, or sleeping too much: not at all 4. Feeling tired or having little energy: several days 5. Poor appetite or overeating: not at all 6. Feeling bad about yourself - or that you are a failure or have let yourself or your family down: not at all 7. Trouble concentrating on things, such as reading the newspaper or watching television: not at all 8. Moving or speaking so slowly that other people could have noticed. Or the opposite - being so fidgety or restless that you have been moving around a lot more than usual: not at all 9. Thoughts that you would be better off or of hurting yourself in some way: not at all Total score: 2 Depression Screening Interpretation: Negative Depression Screening Done: Yes 89721 - PHQ-9 Billing: Yes Source: Developed by Drs. Janusz Keller, Monet Edwards, Tiago Gregg and colleagues, with an educational mickie from [employer]. Thrive Questionnaire Date Thrive assessed: 04/25/24 I am a: Patient What is your living situation today?: I have a steady place to live Within the past 12 months, did the food you bought not last and you didn't have the money to get more?: Never true Within the past 12 months, did you worry whether your food would run out before you got money to buy more?: Never true Do you have trouble paying for medicines?: No Do you have trouble getting transportation to medical appointments?: No Do you have trouble paying your heating and electricity bill?: No Do you have trouble taking care of your child, family member or friend?: No Do you have trouble with day-to-day activities such as bathing, preparing meals, shopping, managing finances, etc.?: No Are you currently unemployed and looking for a job?: No Are you interested in more education?: No Please select the resources that you would like help with: None Currently or been in a relationship where the following occur: No concerns reported THRIVE Score: 0 AUDIT C Alcohol Use Questionnaire (AUDIT-C) 1. How often do you have a drink containing alcohol?: Monthly or less 2. How many drinks containing alcohol do you have on a typical day when you are drinking?: 1 or 2 3. How often do you have six or more drinks on one occasion?: Never Total Score: 1 Score Reviewed/Action Taken: No COBY-7 AMB Questionnaire COBY-7 Date COBY - 7 assessed: 04/25/24 Feeling nervous, anxious, or on edge: 0 = Not at all Not being able to stop or control worryin = Not at all Worrying too much about different things: 0 = Not at all Trouble relaxin = Not at all Being so restless that it is hard to sit still: 0 = Not at all Becoming easily annoyed or irritable: 0 = Not at all Feeling afraid as if something awful might happen: 0 = Not at all Total COBY-7 score (0-4 normal; 5-9 mild; 10-14 moderate; 15-21 severe): 0 Source: Developed by Drs. Janusz Keller, Monet Edwards, Tiago Gregg and colleagues, with an educational mickie from [employer]. COBY-7 Assessment Billing COBY-7 Assessment Tool: COBY-7 Assessment 18397 Review of Systems Const All systems reviewed & are unremarkable except as noted in HPI and below Card Denies chest pain at rest, Denies chest pain with activity, Denies edema, Denies irregular heart rhythm, Denies claudication, Denies dyspnea, Denies dyspnea on exertion, Denies orthopnea, Denies paroxysmal nocturnal dyspnea and Denies slow heart rate Resp Denies cough, Denies dyspnea and Denies dyspnea on exertion Physical exam (Primary Care) Vital Signs: Last Vital Signs BP 146/90 H 04/25/24 14:51 BMI result Body Mass Index 40.6 BMI Assessment/Plan discussion: High BMI High, discussed plan: lifestyle, weight reduction, dietary and physical activity Tobacco/Smoking Status: Tobacco use Status Tobacco use date assessed 04/25/24 04/25/24 14:56 Patient Tobacco Use Status Former Tobacco user 04/25/24 14:49 Tobacco use type Cigarette 04/25/24 14:49 e-Cigarette/Vaping Use Never Used 04/25/24 14:49 PHQ-9: PHQ-9 Score PHQ-9: Total score 2 04/25/24 15:26 Depression Screening Interpretation: Negative Thrive Assessment: Date of Thrive Assessment Date Thrive assessed 04/25/24 04/25/24 14:56 Currently or been in a relationship where the following occur: No concerns reported Resp Effort & Inspection: normal respiratory effort Auscultation: clear to auscultation bilaterally Cardio Jugular venous distension: no JVD Rate: regular rate Rhythm: regular rhythm Heart sounds: S1 normal heart sound present and S2 normal heart sound present Extrem General: Yes full ROM Office Procedures Flu Questionnaire Does the patient have a severe egg allergy?: No Results AMB Hemoglobin A1c AMB Hemoglobin A1c 7.7 % Last Edit by CHUY Gary on 04/25/24 15:0 0 Immunizations Fluarix Triv [id number] (PF) 45 mcg (15 mcg x 3)/0.5 mL IM syringe Performing Provider: Adri Ariza MD [place] [facility] [place] [facility] Documented (not given) by: CHUY Gary on 04/25/24 14:58 Reason Not Given: Patient Refused Results Reviewed Results Reviewed: Laboratory Last Values Hgb A1c (Clinic) 7.7 % (4.0-6.0) H 04/25/24 14:58 Coding Level of Care Code Est Pt Level 4 (05473) Complex EM visit Add On G2211 Diagnoses Hyperlipidemia LDL goal <70 E78.5 Type 2 diabetes mellitus with hyperglycemia, without long-term current use of insulin E11.65 Diabetes mellitus type: type 2 Diabetes mellitus senior living insulin use: without terminal supervisor use Diabetes mellitus complication status: with hyperglycemia Morbid obesity E66.01 Essential hypertension I10 Additional Codes COBY-7 Assessment Billing - COBY-7 Assessment Tool: COBY-7 Assessment 08862 ([id number]) PHQ-9 - 13366 - PHQ-9 Billing: Yes ([id number]) Time Spent (min) 23 Assessment & Plan Assessment & Plan (1) Hyperlipidemia LDL goal <70: Code(s): E78.5 - Hyperlipidemia, unspecified Category: Medical (2) Diabetes mellitus: Code(s): E11.9 - Type 2 diabetes mellitus without complications Category: Medical Qualifiers: Diabetes mellitus type: type 2 Diabetes mellitus terminal supervisor insulin use: without senior living use Diabetes mellitus complication status: with hyperglycemia Qualified Code(s): E11.65 - Type 2 diabetes mellitus with hyperglycemia (3) Morbid obesity: Code(s): E66.01 - Morbid (severe) obesity due to excess calories Category: Medical (4) Essential hypertension: Code(s): I10 - Essential (primary) hypertension Category: Medical Plan Continue statins. LDL goal is less than 70. Repeat lipid panel. Continue lisinopril. Blood pressure goal is equal or less than 130/80. Recheck blood pressure with nurse navigator in 3 weeks. Start diet and exercise to reach BMI goal less than 30. Increase Actos to 30 mg. A1c goal is equal or less than 7%. Orders: Orders Microalbumin, Random (w Creat) Today R80.9 - Proteinuria, unspecified Influenza [id number] Immunization Today Z23 - Encounter for immunization AMB Hemoglobin A1c Today E11.65 - Type 2 diabetes mellitus with hyperglycemia Lipid Panel Today E78.5 - Hyperlipidemia, unspecified Vitamin D 25-OH Total Today E55.9 - Vitamin D deficiency, unspecified Comprehensive [place]. Panel Fast Today E11.65 - Type 2 diabetes mellitus with hyperglycemia Medications: New pioglitazone 30 mg PO DAILY 90 tabs 1RF 90 days Refilled atorvastatin 40 mg PO BEDTIME 90 tabs 0RF Discontinued pioglitazone Discontinued Reason: Patient Completed Course 15 mg PO DAILY 90 tabs 0RF
[2024-04-25 14:51] VITALS: BP 146/90; BMI 40.6
== END 2024-04-25 15:37 | disposition home or self-care (01) ==
PROVIDERS: PCP Internal Medicine; Visit Provider Internal Medicine
DX: E11.65 Type 2 diabetes mellitus with hyperglycemia (principal); E66.01 Morbid (severe) obesity due to excess calories; Z68.41 Body mass index [BMI] 40.0-44.9, adult; E78.5 Hyperlipidemia, unspecified; I10 Essential (primary) hypertension

== ENCOUNTER → 2024-04-25 14:37 | Outpatient (BNVA) | payer OTHER, SELFPAY | PROVIDERS: PCP Internal Medicine; Visit Provider Internal Medicine | DX: E11.65 Type 2 diabetes mellitus with hyperglycemia (principal); I10 Essential (primary) hypertension; E78.5 Hyperlipidemia, unspecified; E66.01 Morbid (severe) obesity due to excess calories; Z68.41 Body mass index [BMI] 40.0-44.9, adult; R80.9 Proteinuria, unspecified | CPT/HCPCS: 83036; 96127; 99212 ==

== ENCOUNTER 2024-09-27 15:40 | Outpatient (REF) | payer OTHER, SELFPAY ==
--- OUTSIDE RECORDS SUMMARY | 2023-09-01 05:00 | XMS_ITS ---
Author Organization [facility] Address [address] [place] [address] Care Team Providers Care Process Checker Name Role Phone Adri Dunn Primary Care Provider UnavailJanusz Zabala Unavailable [phone] REASON FOR VISIT screening Problems Problem Type SNOMED Code ICD Code Onset Dates Problem Status W/U Status Risk Notes Problem Diverticular disease of colon (665810225) Diverticulosis of large intestine without perforation or abscess without bleeding (K57.30) Active confirmed Encounters Encounter Location Date Provider Diagnosis [facility] Outpatient [address] [place] [id number] 09/01/2023 Janusz Esparza Encounter for scre ening colonoscopy Z12.11 ; Diverticulosis of large intestine without perforation or abscess without bleeding K57.30 and Other hemorrhoids K64.8 Assessments Encounter Date Diagnosis (ICD Code) Assessment Notes Treatment Notes Treatment Clinical Notes Section Notes 09/01/2023 Encounter for screening colonoscopy (ICD-10 - Z12.11) 09/01/2023 Diverticulosis of large intestine without perforation or abscess without bleeding (ICD-10 - K57.30) 09/01/2023 Other hemorrhoids (ICD-10 - K64.8) Plan Of Treatment No Information Progress Notes * EDMUND LEONARD FDOB:1964 (59 yo M)Acc No.[id number]:09/01/2023 COLON WITH MAC Patient: EDMUND HATHAWAY Provider: Isa Esparza MD :1965 A ge:58 Y S ex:Male Date:09/01/2023 Address:[address] [place], [place] [address] [address] [place], [place] [id number] Pcp:Adri Ariza Subjective: * Chief Complaints: * 1 . Screening. * Medical History: Objective: * Vitals: Assessment: * Assessment: 1. E ncounter for screening colonoscopy - Z12.11 (Primary) 2 . D iverticulosis of large intestine without perforation or abscess without bleeding - K57.30 3 .?Other hemorrhoids - K64.8 Plan: * Treatment: * Procedure Codes: 4 5378 DIAGNOSTIC COLONOSCOPY * * The named appointment provid er may or may not be the originator of this progress note, and it is not deemed complete until electronically signed by the appointment provider. Sign off status: Pending * Provider: Isa Esparza MD Date: 0 09/01/2023 Generated for Dinora lopez/Héctor/Zeferinoitting on: 0 09/27/2024 05:49 PM EDT
--- NOTE | ~2024-09-27 | XR_ITS ---
EXAMINATION: XR HAND, RIGHT CLINICAL INFORMATION: M79.641 - Pain in right hand COMPARISON: None available. TECHNIQUE: PA, lateral, and oblique views of the right hand. FINDINGS: Anchors are seen projecting over the knee, and 2 over the region of the scaphoid There is no joint diastases. Joint spaces are preserved. No fracture line is evident. XR/XR hand RT 2V IMPRESSION: No acute abnormality. 3 Surgical anchors, as noted above. Electronically signed by: Kareem Daniels MD 09/27/2024 03:57 PM EDT
== END 2024-09-27 15:41 | disposition home or self-care (01) ==
LOC: HO.XRAY 15:40
PROVIDERS: PCP Internal Medicine; Visit Provider Internal Medicine
DX: M79.641 Pain in right hand (principal)
CPT/HCPCS: 73120

== ENCOUNTER → 2024-09-27 15:45 | Outpatient (BNV) | payer OTHER, SELFPAY | PROVIDERS: PCP Internal Medicine; Visit Provider Radiology Diagnostic Radiology | DX: M79.641 Pain in right hand (principal) | CPT/HCPCS: 73120 ==

== ENCOUNTER 2025-03-27 09:57 | Outpatient (REF) | payer OTHER, SELFPAY ==
[2025-03-27 10:59] LABS: Cholesterol 199 mg/dL (<200); HDL Cholesterol 30 mg/dL (>40); Triglycerides 309 mg/dL (<150)
--- NOTE | 2025-03-27 11:05 | ECG_ITS ---
Test Reason : preop Blood Pressure : */* mmHG Vent. Rate : 87 BPM Atrial Rate : 87 BPM P-R Int : 130 ms QRS Dur : 84 ms QT Int : 322 ms P-R-T Axes : 53 21 73 degrees QTcB Int : 387 ms Sinus rhythm with Blocked Premature atrial complexes Otherwise normal ECG When compared with ECG of 13-Mar-2019 13:28, Premature atrial complexes are now Present Referred By: Puma Barajas Electronically Signed By: Mane Granados
[2025-03-27 11:06] LABS: Microalbum/Creatinine Ratio Ur 4.2 ug/mg cr (<30)
[2025-03-27 11:58] LABS: Hematocrit 51.7 % (42.0-52.0); Hemoglobin 17.7 g/dl (14.0-18.0); Mean Corpuscular HGB Conc 34.2 g/dl (31.0-36.0); Mean Corpuscular Hemoglobin 29.7 pg (27.0-33.0); Mean Corpuscular Volume 86.7 fL (80.0-98.0); NRBC Abs Auto 0.000 X10*3/uL (0.0-0.012); NRBC Pct Auto 0.0 /100WBC (0.0-0.2); Platelet Count 247 X10*3/uL (160-400); Red Blood Count 5.96 X10*6/uL (4.60-5.80); White Blood Count 6.9 X10*3/uL (4.8-10.8)
--- OUTSIDE RECORDS SUMMARY | 2025-03-27 12:04 | XMS_ITS | Clinical Summary ---
Author Organization [facility] Address [address] [place] [address] Phone Care Team Providers Care Lead Atg Developer Name Role Phone Adri Ariza MD Primary Care Provider [phone] Allergies Active Allergy Reactions Criticality Noted Date Comments Pepper (Genus Capsicum) 11/21/2024 Medications Taltz Autoinjector 80 mg/mL injection 11/06/2024 Act sergei pioglitazone (ACTOS) 30 mg tablet Take 1 tablet (30 mg total) by mouth 1 (one) time each day. 04/25/2024 Active atorvastatin (LIPITOR) 40 mg tablet Take 1 tablet (40 mg total) by mouth at bedtime. 04/25/2024 Active Active Problems Problem Noted Date Diagnosed Date Impingement syndrome of left shoulder 02/23/2025 Arthritis of left acromioclavicular joint 2024 Superior glenoid labrum lesion of left shoulder 02/23/2025 Scapholunate advanced collapse of right wrist Nontraumatic incomplete tear of left rotator cuf f 11/21/2024 Encounters Date Type Department Care Team Description 02/23/2025 10:30 AM EST Consult Orthopedic Surgery [facility] [address] [facility] [address] [place] [phone] Robert Perry MD Nontraumatic incomplete tear of left rotator cuff (Primary Dx); Impingement syndrome of left shoulder; Arthritis of left acromioclavicular joint; Superior glenoid labrum lesion of left shoulder, initial encounter 01/18/2025 Results Follow-Up Orthopedic Surgery - [place] 175 [facility] [address] [place] [phone] Stephanie Wen MD 01/15/2025 8:44 AM EDT - 01/15/2025 11:59 PM EDT Hospital Encounter [facility] MRI [address] [place] [id number] Nontraumatic incomplete tear of left rotator cuff Discharge Disposition: Home or Self Care 01/11/2025 9:00 AM EDT Treatment [facility] [place] [address] [facility] [address] [place] [phone] Venkata Garces, [employer] SUPERVISOR Nontraumatic incomplete tear of left rotator cuff (Primary Dx) from Last 3 Months Surgical History Surgery Date Site/Laterality Comments HAND SURGERY Right wrist/thumb; done by Dr. Wen Social History Tobacco Use Types Packs/Day Years Used Date Smoking Tobacco: Never Assessed Sex and Gender Information Value Date Recorded Sex Assigned at Not on file Legal Sex Male 8:53 AM EDT Gender Identity Not on file Sexual Orientation Not on file Last Filed Vital Signs Vital Sign Reading Time Taken Comments Blood Pressure - - Pulse - - Temperature - - Respiratory Rate - - Oxygen Saturation - - Inhaled Oxygen Concentration - - Weight 137 kg (301 lb) 02/23/2025 10:41 AM EST Height 179.1 cm (5' 10.51 ) 02/23/2025 10:41 AM EST Body Mass Index 42.56 02/23/2025 10:41 AM EST Plan of Treatment Upcoming Encounters Date Type Department Care Team (Latest Contact Info) Description 04/26/2025 11:00 AM EST Hospital Encounter [facility] Main OR [address] [place] [phone] Robert Perry MD 175 [facility] [address] [place] [address] 04/26/2025 11:00 AM EST - 04/26/2025 12:30 PM EST Surgery [facility] Main OR [address] [place] [phone] Robert Perry MD [address] [address] ARTHROSCOPY LEFT SHOULDER, REPAIR ROTATOR CUFF [[id number] (CPT )] 05/04/2025 8:30 AM EST Evaluation Outpatient Rehabilitation [address] [phone] Mahesh Schroeder, PT [address] [place] [address] 05/09/2025 1:30 PM EST Office Visit Orthopedic Surgery - [place] [address] [phone] Robert Perry MD [address] [address] Scheduled Procedures Name Priority Associated Diagnoses Date/Ti me ARTHROSCOPY SHOULDER REPAIR ROTATOR CUFF Nontraumatic incomplete tear of left rotator cuff Impingement syndrome of left shoulder Arthritis of left acromioclavicular joint Superior glenoid labrum lesion of left shoulder, initial encounter 04/26/2025 11:00 AM EST Health Maintenance Due Date Last Done Comments Colorectal Cancer Screening: Colonoscopy 1967 DTaP,Tdap,and Td Vaccines (1 - Tdap) 1986 Hepatitis B Vaccines (1 of 3 - 19+ 3-dose series) 1986 Pneumococcal Vaccine: 50+ Years (1 of 1 - PCV) 2017 RSV Immunization Adult Patients (1 - Risk 50-74 years 1-dose series) 2017 Zoster Vaccines (1 of 2) 2017 Depression Screening 04/12/2024 Cholesterol Screening (Lipid Panel) 09/29/2024 HIV Screening 09/29/2024 Hepatitis C Screening 09/29/2024 Social Influencers of Health Screening 09/29/2024 COVID-19 Vaccine (3 - 2024-2 6 season) 2024 08/25/2020, 08/04/2020 Influenza Vaccine (#1) 2024 01/29/2017 HIB Vaccines Aged Out No longer eligi ble based on patient's age to complete this topic HPV Vaccines Aged Out No longer eligi ble based on patient's age to complete this topic Hepatitis A Vaccines Aged Out No long er eligible based on patient's age to complete this topic IPV Vaccines Aged Out No longer eligi ble based on patient's age to complete this topic MMR Vaccines Aged Out No longer eligi ble based on patient's age to complete this topic Meningococcal ACWY Vaccine Aged Out N o longer eligible based on patient's age to complete this topic Meningococcal B Vaccine Aged Out No l onger eligible based on patient's age to complete this topic RSV Immunization Patients Under 20 months Aged Out No longer eligible b ased on patient's age to complete this topic Varicella Vaccines Aged Out No longer eligible based on patient's age to complete this topic Goals Goal Patient Goal Type Associated Problems Recent Progress Patient-Stated? Author PT LTGs General No Janusz Gavin, JACK Note: Pt will increase left shoulder AROM flexion to 100 degrees for improved ADL performance Pt will increase left shoulder AROM Abduction to 100 degrees for improved ADL performance Pt will increase Left shoulder strength to 4/5 throughout for improving ADL and IADLs Pt will be independent with HEP Autogenerated Goal Care Plan Autogenerated Problem No Robert Perry MD Procedures Procedure Name Priority Date/Time Associated Diagnosis Comments MR SHOULDER WO CONTRAST LEFT Routine 01/15/2025 10:16 AM EDT Nontraumatic incomplete tear of left rotator cuff from Last 3 Months Results * MR Shoulder wo Contrast Left (01/15/2025 10:16 AM EDT) Anatomical Region Laterality Modality Upper Extremities, Shoulder Left Magn etic Resonance 01/16/2025 4:05 AM EDT Impressions 01/16/2025 4:14 AM EDT 1. Findings suspicious for SLAP tear with degenerative tearing of the posterior labrum and possible Bankart lesion with associated para-labral cyst 2. Constellation of findings which can be seen in the clinical setting of adhesive capsulitis 3. Rotator cuff tendinosis 4. Moderate AC joint arthropathy with downsloping acromion -------- FINAL REPORT -------- Dictated By: Ameena Brown Dictated Date: 01/16/2025 04:05 ET Assigned Physician: Ameena Brown Reviewed and Electronically Signed By: Ameena Brown Signed Date: 01/16/2025 04:14 ET Workstation ID: [id number] Transcribed By: Self Edit Transcribed Date: 01/16/2025 04:05 ET Narrative 01/16/2025 4:14 AM EDT INDICATION: Shoulder pain, rotator cuff disorder suspected, xray done COMPARISON: None TECHNIQUE: Multiplanar, multisequence MRI examination was performed of the left shoulder without intravenous contrast. FINDINGS: Scan sensitivity is degraded due to motion. Rotator Cuff: Signal heterogeneity of the supraspinatus, infraspinatus and subscapularis tendons in keeping with tendinosis. Low-grade partial thickness tearing of the undersurface fibers of the infraspinatus tendon is not excluded. No significant muscle volume loss or fatty infiltration. Biceps Tendon: Intra-articular biceps tendinosis Labrum: Fluid signal involving the superior labrum extending anterior to posterior which may represent a SLAP tear. Heterogeneity of the posterior labrum in keeping with degenerative tearing. Nonspecific heterogeneity of the anterior inferior labrum which may represent stigmata of prior tearing with an associated para-labral cyst measuring approximately 13 x 6 mm. Bone/Cartilage: Nonspecific deformity of the posterolateral humeral head which may represent a small Hill-Sachs lesion or stigmata of prior trauma. No acute fracture or dislocation. Mild to moderate cartilage thinning of the humeral head and glenoid. Cystic change of the greater tuberosity. AC Joint: Moderate AC joint arthropathy with downsloping acromion Miscellaneous:Thickening of the inferior axillary pouch with blurring of the rotator fat interval which may be seen in the clinical setting of adhesive capsulitis. Small amount of subacromial/subdeltoid bursal fluid. Fluid signal extending into the proximal biceps tendon sheath. Procedure Note Ameena Brown MD - 01/16/2025 INDICATION: Shoulder pain, rotator cuff disorder suspected, xray done COMPARISON: None TECHNIQUE: Multiplanar, multisequence MRI examination was performed ofthe left shoulder without intravenous contrast. FINDINGS: Scan sensitivity is degraded due to motion. Rotator Cuff: Signal heterogeneity of the supraspinatus, infraspinatusand subscapularis tendons in keeping with tendinosis. Low-grade partialthickness tearing of the undersurface fibers of the infraspinatus tendonis not excluded. No significant muscle volume loss or fattyinfiltration. Biceps Tendon: Intra-articular biceps tendinosis Labrum: Fluid signal involving the superior labrum extending anterior toposterior which may represent a SLAP tear. Heterogeneity of the posteriorlabrum in keeping with degenerative tearing. Nonspecific heterogeneity ofthe anterior inferior labrum which may represent stigmata of prior tearingwith an associated para-labral cyst measuring approximately 13 x 6 mm. Bone/Cartilage: Nonspecific deformity of the posterolateral humeral headwhich may represent a small Hill-Sachs lesion or stigmata of prior trauma.No acute fracture or dislocation. Mild to moderate cartilage thinning ofthe humeral head and glenoid. Cystic change of the greater tuberosity. AC Joint: Moderate AC joint arthropathy with downsloping acromion Miscellaneous:Thickening of the inferior axillary pouch with blurring ofthe rotator fat interval which may be seen in the clinical setting ofadhesive capsulitis. Small amount of subacromial/subdeltoid bursal fluid.Fluid signal extending into the proximal biceps tendon sheath. IMPRESSION: 1. Findings suspicious for SLAP tear with degenerative tearing of theposterior labrum and possible Bankart lesion with associated para-labralcyst 2. Constellation of findings which can be seen in the clinical setting ofadhesive capsulitis 3. Rotator cuff tendinosis 4. Moderate AC joint arthropathy with downsloping acromion -------- FINAL REPORT -------- Dictated By: Ameena Brown Dictated Date: 01/16/2025 04:05 ET Assigned Physician: Ameena Brown Reviewed and Electronically Signed By: Ameena Brown Signed Date: 01/16/2025 04:14 ET Workstation ID: [id number] Transcribed By: Self Edit Transcribed Date: 01/16/2025 04:05 ET Stephanie Wen MD IMG MRI PROCEDURES Final Resu lt from Last 3 Months Additional Health Concerns Active Problems Noted Date Diagnosed Date Autogenerated Problem 02/23/2025 Insurance [facility] PLAN Care Teams Lead Atg Developer Relationship Specialty Start Date End Date Adri Ariza MD 2 [facility] , [address] [facility] TRICE Del Angel PCP - General Internal Medicine 11/22/24
--- OUTSIDE RECORDS SUMMARY | 2025-03-27 12:04 | XMS_ITS | Patient Health Record ---
Author Organization [facility] Address [address] [place] [address] Care Team Providers Care Event Producer Name Role Phone Adri Dunn Primary Care Provider Janusz Prescott [phone] Allergies No Known Allergies Reason For Referral No Information Medications Medication SIG (Take, Route, Frequency, Duration) Notes Start Date End Date Status MiraLax (colon prep) 17 GM/SCOOP Powder 1 238 Gm bottle mixed with Gatorade or Crystal Light Orally begin at 5:00 p.m. the day before the procedure; Duration: 1 day 05/27/2023 Active Otezla Active Atorvastatin Calcium 40 MG Tablet TAKE 40 MG (1 TABLET) BY MOUTH BEDTIME FOR 90 DAYS Oral; Duration: 90 Active Aleve Active Dulcolax (colon prep) 5 MG Tablet Delayed Release take at 3:00 p.m and 7:00p.m. Orally two tablets twice a day for one day; Duration: 1 day 05/27/2023 Active Pioglitazone HCl 15 MG Tablet Oral; Duration: 90 Active Social History Tobacco Use: Social History Observation Description Date Details (start date - stop date) Never Smoker NA - NA Social History Drugs/Alcohol: Social Info Question Answer Notes Alcohol Screen Did you have a drink containing alcohol in the past year? Yes How often did you have a drink containing alcohol in the past year? 2 to 3 times a week (3 points) How many drinks did you have on a typical day when you were drinking in the past year? 1 or 2 drinks (0 point) How often did you have 6 or more drinks on one occasion in the past year? Never (0 point) Points 3 Interpretation Negative Tobacco Use: Social Info Question Answer Notes Tobacco Use/Smoking Patient is a nonsmoker Additional Details Category Social Info Options Details Miscellaneous: Marital status: Occupation: unemployed Section Notes: Smokes CANNABIS; occ. alcoho l Problems Problem Type SNOMED Code ICD Code Onset Dates Problem Status W/U Status Risk Notes Problem Screening for malignant neoplasm of colon (778696195) Encounter for screening for malignant neoplasm of colon (Z12.11) Active confirmed Problem Pre-procedure evaluation check (731016813) Encounter for other preprocedural examination (Z01.818) Active confirmed Problem Diverticular disease of colon (117265554) Diverticulosis of large intestine without perforation or abscess without bleeding (K57.30) Active confirmed Plan Of Treatment Future Test Test Name Order Date COLONOSCOPY 05/27/2023 Insurance Providers Payer Name Payer Address Payer Phone Subscriber Number Group Number Insured Name Patient Relationship to Insured Coverage Start Date Coverage End Date [facility] [employer] [facility] [address] [address] [place], [place] [id number] EDMUND LEONARD Self - patient is the insured Medical (General) History Medical History History ICD Code Denies MS,CVA,Lung disease,renal disease Psoriasis Pulmonary embolus--on a blood thinner fo r 18 months--saw Dr. Mckay NIDDM- Hyperlipidemia Surgical History Surgery Date(Month/Year) Vasectomy, reversal, and then another va sectomy Left Foot Right wrist
[2025-03-27 12:33] LABS: Alanine Aminotransferase 32 U/L (0-40); Albumin Level 4.0 g/dL (3.5-5.0); Alkaline Phosphatase 75 U/L (39-117); Anion Gap 12 (12-20); Aspartate Amino Transferase 26 U/L (5-37); Blood Urea Nitrogen 15 mg/dL (9-16); Calcium 9.1 mg/dL (8.4-10.2); Carbon Dioxide 27 mmol/L (22-29); Chloride 104 mmol/L (96-108); Estimated Glomerular Filt Rate > 60; Potassium 4.3 mmol/L (3.3-5.1); Sodium 139 mmol/L (135-145); Total Protein 6.7 g/dL (6.5-8.0)
== END 2025-03-27 09:58 | disposition home or self-care (01) ==
LOC: HO.LAB 09:57
PROVIDERS: Absent Provider Internal Medicine; PCP Internal Medicine; Visit Provider Internal Medicine
DX: Z01.818 Encounter for other preprocedural examination (principal); R80.9 Proteinuria, unspecified; E78.5 Hyperlipidemia, unspecified; E55.9 Vitamin D deficiency, unspecified; E11.65 Type 2 diabetes mellitus with hyperglycemia
CPT/HCPCS: 36415; 80053; 80061; 82043; 82306; 82570; 85027; 93005

== ENCOUNTER 2025-03-27 10:15 | Outpatient (AMB) | payer OTHER, SELFPAY ==
[2025-03-27 10:21] VITALS: BP 138/72; PULSE 103; RESP 18; O2SAT 96; BMI 41.7
--- NOTE | 2025-03-27 10:21 | MHC.PC.OV ---
Vital Signs 03/27/25 10:21 Height 5 ft 11 in Weight 299 lb 6 oz BMI 41.7 BP 138/72 Blood Pressure Location Lt brachial Position Sitting Respiration 18 Pulse 103 H Pulse Source Pulse Oximeter Temp Source Temporal Artery Scan Pulse Oximetry (%) 96 Oxygen Delivery Method Room Air Intake Visit Reasons: [facility] left rotator cuff repair on 04/26/25 Child Watch Attendant Required: No Accompanied by: Self / Same As Patient Allergies metformin Adverse Reaction (Severe, Verified 03/27/25 10:22) Diarrhea pepper (genus Capsicum) Adverse Reaction (Unknown, Verified 03/27/25 10:22) Unknown Medication List - Last Reconciled 03/27/25 by Puma Barajas MD atorvastatin 40 mg PO BEDTIME blood sugar diagnostic (FreeStyle Lite Strips) Use 1 test strip once a day blood-glucose meter (FreeStyle Lite Meter kit) As directed lancets (FreeStyle Lancets) Use 1 lancet once a day pioglitazone 30 mg PO DAILY 90 days Tobacco use date assessed: 03/27/25 Dental Screening Dental Screen Date: 03/27/25 Did you have a dental visit in the last 12 months?: No Did you have a dental problem in the last 6 months where you did not have access to dental care?: No Was dental information given to patient?: No HPI HPI Comments History of Present Illness Details The patient is a 60 year old male with PMH of HLD, DM, presenting for preoperative evaluation for a left rotator cuff tear on April [address] [facility]. He has a history of a pulmonary embolism a few years ago, which was treated with warfarin for six months without recurrence. He denies any history of DVT. The patient reports a history of left knee pain, which limits his ability to take the stairs and walk long distances. He denies any SOB or CP related to physical activity. He has a history of eczema, for which he self-administers EpiPen injections. He reports he stopped taking pioglitazone around Halloween when he was sick and did not restart it. He does not monitor his blood glucose at home due to an aversion to sticking himself with needles. He notes that his blood sugar levels were previously well-controlled but believes they are now elevated due to recent holiday dietary choices. He was evaluated by Cardiology on 09/11/2021 prior to a colonoscopy and his EKG showed blocked PACs which was considered normal at that time. I ordered CBC, CMP which came back without significant findings besides elevated glucose at 207. His EKG showed sinus rhythm with premature atrial complexes similar to previously reported blocked PAC from cardiology note in 2021. [facility] Medical History Physical exam Mixed hyperlipidemia Morbid obesity Screen for colon cancer Lumbar pain Bilateral knee pain Erectile dysfunction Dyslipidemia Obese Lumbar spondylosis with myelopathy Shortness of breath Lumbar radiculopathy, chronic Surgical History Hx of vasectomy History of tooth extraction History of arthroscopy of right knee H/O right wrist surgery History of ankle surgery Family History Father Heart attack COPD (chronic obstructive pulmonary disease) Mother No problems noted. Maternal Grandmother Lung cancer Maternal Grandfather Lung cancer Social History Housing: Other Alcohol intake: current Alcohol intake frequency: holidays/special occasions only Alcohol type: hard liquor Patient Tobacco Use Status: Former Tobacco user Tobacco use type: Cigarette e-Cigarette/Vaping Use: Never Used Second Hand Smoke Exposure: No Substance Use Type: Marijuana service: No Current occupational status: unemployed Cognitive needs: No Hearing needs: No Vision needs: No Questionnaire Thrive Questionnaire Date Thrive assessed: 04/25/24 OCBY-7 AMB Questionnaire COBY-7 Date COBY - 7 assessed: 04/25/24 Source: Developed by Drs. Janusz Keller, Monet Edwards, Tiago Gregg and colleagues, with an educational mickie from [employer]. Review of Systems Const Details: As per HPI. Physical exam (Primary Care) Vital Signs: Last Vital Signs Pulse 103 H 03/27/25 10:21 Resp 18 03/27/25 10:21 BP 138/72 03/27/25 10:21 Pulse Ox 96 03/27/25 10:21 Oxygen Delivery Method Room Air 03/27/25 10:21 BMI result Body Mass Index 41.7 Tobacco/Smoking Status: Tobacco use Status Tobacco use date assessed 03/27/25 03/27/25 10:32 Patient Tobacco Use Status Former Tobacco user 03/27/25 10:32 Tobacco use type Cigarette 03/27/25 10:32 e-Cigarette/Vaping Use Never Used 03/27/25 10:32 Thrive Assessment: Date of Thrive Assessment Date Thrive assessed 04/25/24 03/27/25 10:32 Const Other: Pertinent findings are in BOLD GENERAL APPEARANCE NAD, activity normal for age, well developed/ well nourished, no cyanosis, pallor, or diaphoresis. EYES lids/conjunctiva normal. EARS/NOSE/THROAT Mucous membranes moist, nares normal, lips/teeth normal uvula midline without oral pharyngeal erythema, exudate or swelling TMs normal bilaterally. No lymphangitis/lymphedema. HEAD/NECK normocephalic atraumatic, no facial trauma, neck is supple. RESPIRATORY respiratory effort normal, speaks in full sentences, no tripod position, no accessory muscle use. Lungs clear to auscultation without rhonchi, wheezes, rales CARDIAC Regular rate and rhythm, no edema. ABDOMINAL Soft, ND/NT. No evidence of fluid wave. No pulsatile masses on exam, rebound tenderness, Kim sign or pain over Mcburney's point. MUSCLES/EXTREMITIES No abnormal range of motion, no swelling. SKIN Warm, pink and dry. No rashes, dermatoses, petechiae or lesions. NEUROLOGICAL Speech is clear and appropriate. Normal level of consciousness. Gait and coordination are normal. 5/5 strength in all extremities. PSYCH Normal mood and affect. Judgement/competence is appropriate Results AMB Hemoglobin A1c AMB Hemoglobin A1c 6.0 % Last Edit by Elizabeth Sage MA on 03/27/25 12:32 Results Reviewed Results Reviewed: Laboratory Last Values Hgb A1c (Clinic) 6.0 % (4.0-6.0) 03/27/25 10:48 Coding Level of Care Code Est Pt Level 4 (57886) Diagnoses Pre-op evaluation Z01.818 Type 2 diabetes mellitus with hyperglycemia, without long-term current use of insulin E11.65 Diabetes mellitus type: type 2 Diabetes mellitus halfway insulin use: without assistant terminal manager use Diabetes mellitus complication status: with hyperglycemia Assessment & Plan Assessment & Plan (1) Pre-op evaluation: Comment: Left rotator cuff repair April [address] [facility]. Code(s): Z01.818 - Encounter for other preprocedural examination Category: Medical Plan: Patient's CBC, CMP within normal limits besides elevated random blood sugar. The patient has not been compliant with his diabetes medications. A1C was 6.0 in clinic. EKG showed normal sinus rythm with blocked PACs similar to findings from cardiology note in 2021. - Since the patient was previously assessed by cardiology in 2021 for blocked PAC, his labs were within normal limits, and he denies any cardiac history or symtpoms I will clear the patient for surgery. -- OKay to preoceed with surgery without any changes in current regimen. --- Emphasized to the patient the importance of mediction and blood sugar checks adherence. ---- Patient is aware that every procedure carries risk of complications despite his normal exam, and blood work. (2) Diabetes mellitus: Code(s): E11.9 - Type 2 diabetes mellitus without complications Category: Medical Qualifiers: Diabetes mellitus type: type 2 Diabetes mellitus assistant terminal manager insulin use: without assistant terminal manager use Diabetes mellitus complication status: with hyperglycemia Qualified Code(s): E11.65 - Type 2 diabetes mellitus with hyperglycemia Plan: - The patient stopped taking his pioglitazone around . - An in-office A1c was 6.0. - He has a follow-up scheduled with his PCP, Dr. Sarkar, on the of the month to discuss restarting his medication. - I emphasized on the importance of adherence to medications and blood sugar checks. Plan Patient cleared for surgery based on the current blood work, EKG, hisotry and physcial exam. Orders: Orders Complete Blood Count no Diff 03/27/25 Z01.818 - Encounter for other preprocedural examination ECG 12 lead EKG 03/27/25 Z01.818 - Encounter for other preprocedural examination Comprehensive Met. Panel 03/27/25 Z01.818 - Encounter for other preprocedural examination AMB Hemoglobin A1c 03/27/25 E11.65 - Type 2 diabetes mellitus with hyperglycemia
== END 2025-03-27 11:20 | disposition home or self-care (01) ==
LOC: HO.HMCH 10:16
PROVIDERS: PCP Internal Medicine; Visit Provider Internal Medicine
DX: Z01.818 Encounter for other preprocedural examination (principal); E11.65 Type 2 diabetes mellitus with hyperglycemia

== ENCOUNTER → 2025-03-27 11:05 | Outpatient (BNV) | payer OTHER, SELFPAY | PROVIDERS: Absent Provider Internal Medicine; PCP Internal Medicine; Visit Provider Internal Medicine Cardiovascular Disease | DX: I49.1 Atrial premature depolarization (principal) | CPT/HCPCS: 93010 ==

== ENCOUNTER 2025-04-10 07:34 | Outpatient (AMB) | payer OTHER, SELFPAY ==
--- NOTE | 2025-04-10 07:36 | MHC.PC.OV ---
Vital Signs 04/10/25 07:37 Height 5 ft 11 in Weight 299 lb BMI 41.7 BP 122/84 Blood Pressure Location Lt brachial Position Sitting Respiration 18 Pulse 85 Pulse Source Pulse Oximeter Temp 98.9 F Temp Source Temporal Artery Scan Pulse Oximetry (%) 94 Oxygen Delivery Method Room Air Intake Visit Reasons: annual exam Spool Cleaner Hand Required: No Accompanied by: Self / Same As Patient Allergies metformin Adverse Reaction (Severe, Verified 04/10/25 07:47) Diarrhea pepper (genus Capsicum) Adverse Reaction (Unknown, Verified 04/10/25 07:47) Unknown Medication List - Last Reconciled 04/10/25 by Adri Ariza MD atorvastatin 40 mg PO BEDTIME blood sugar diagnostic (FreeStyle Lite Strips) Use 1 test strip once a day blood-glucose meter (FreeStyle Lite Meter kit) As directed ixekizumab (Taltz Autoinjector) 80 mg subcut Q4W lancets (FreeStyle Lancets) Use 1 lancet once a day pioglitazone 30 mg PO DAILY 90 days Tobacco use date assessed: 03/27/25 Dental Screening Dental Screen Date: 03/27/25 HPI HPI Comments History of Present Illness Details This is a 60-year-old male with diabetes mellitus type 2 and morbid obesity that comes for his physical exam. A1c this month was 6% which is within goal. Last diabetic eye exam was over a year ago and will be referred to Ophthalmology. LDL not on goal and he admits that his diet has not been great. Blood pressure within goal. Last colonoscopy was 2023 and was normal. Next colonoscopy should be 2033. He declines flu vaccine today. As per patient Tdap vaccine was less than 10 years ago. Complains of neck pain radiating to the left arm with a feeling of pins and needles. No numbness as per patient. X-ray of the neck will be ordered. [facility] Medical History Cervical radiculopathy Physical exam Mixed hyperlipidemia Morbid obesity Screen for colon cancer Lumbar pain Bilateral knee pain Erectile dysfunction Dyslipidemia Obese Lumbar spondylosis with myelopathy Shortness of breath Lumbar radiculopathy, chronic Surgical History Hx of vasectomy History of tooth extraction History of arthroscopy of right knee H/O right wrist surgery History of ankle surgery Family History Father Heart attack COPD (chronic obstructive pulmonary disease) Mother No problems noted. Maternal Grandmother Lung cancer Maternal Grandfather Lung cancer Social History (Updated 04/10/25 @ 07:54 by Adri Ariza MD) Housing: Other Alcohol intake: former Patient Tobacco Use Status: Former Tobacco user Tobacco use type: Cigarette e-Cigarette/Vaping Use: Never Used Second Hand Smoke Exposure: No Substance Use Type: Marijuana service: No Current occupational status: unemployed Cognitive needs: No Hearing needs: No Vision needs: No Questionnaire Thrive Questionnaire Date Thrive assessed: 04/25/24 COBY-7 AMB Questionnaire COBY-7 Date COBY - 7 assessed: 04/25/24 Source: Developed by Drs. Janusz Keller, Monet Edwards, Tiago Gregg and colleagues, with an educational mickie from [employer]. Review of Systems Const All systems reviewed & are unremarkable except as noted in HPI and below Card Denies chest pain at rest, Denies chest pain with activity, Denies edema, Denies irregular heart rhythm, Denies claudication, Denies dyspnea, Denies dyspnea on exertion, Denies orthopnea, Denies paroxysmal nocturnal dyspnea and Denies slow heart rate Resp Denies cough, Denies dyspnea and Denies dyspnea on exertion GI Denies abdominal pain, Denies change in bowel habits, Denies excessive flatus, Denies nausea and Denies vomiting Physical exam (Primary Care) Vital Signs: Last Vital Signs Temp 98.9 F 04/10/25 07:37 Pulse 85 04/10/25 07:37 Resp 18 04/10/25 07:37 BP 122/84 04/10/25 07:37 Pulse Ox 94 04/10/25 07:37 Oxygen Delivery Method Room Air 04/10/25 07:37 BMI result Body Mass Index 41.7 Tobacco/Smoking Status: Tobacco use Status Tobacco use date assessed 03/27/25 04/10/25 07:43 Patient Tobacco Use Status Former Tobacco user 04/10/25 07:43 Tobacco use type Cigarette 04/10/25 07:43 e-Cigarette/Vaping Use Never Used 04/10/25 07:43 Thrive Assessment: Date of Thrive Assessment Date Thrive assessed 04/25/24 04/10/25 07:43 HENNY Head: Yes normal to inspection, Yes normocephalic and Yes atraumatic Ears: external ears normal Eyes General: appearance normal, both eyes and all related structures Eyelids: Yes eyelids normal Conjunctivae: conjunctivae normal Neck Neck: Yes normal visual inspection and Yes supple Resp Effort & Inspection: normal respiratory effort Auscultation: clear to auscultation bilaterally Cardio Jugular venous distension: no JVD Rate: regular rate Rhythm: regular rhythm Heart sounds: S1 normal heart sound present and S2 normal heart sound present GI Inspection: Yes normal to inspection Palpation (GI): Soft to palpation and nontender Auscultation: normal bowel sounds Skin General skin exam: no rashes or lesions noted Neuro General: no focal motor deficits Extrem General: Yes full ROM Psych Appearance: grossly normal Coding Level of Care Code Est Pt Level 3 (58607) Est Pt Prev Care 40-64y(95695) Diagnoses Physical exam Z00.00 Cervical radiculopathy M54.12 Morbid obesity E66.01 Type 2 diabetes mellitus with hyperglycemia, without long-term current use of insulin E11.65 Diabetes mellitus type: type 2 Diabetes mellitus longterm insulin use: without terminal system operator use Diabetes mellitus complication status: with hyperglycemia Time Spent (min) 33 Assessment & Plan Assessment & Plan (1) Physical exam: Code(s): Z00.00 - Encounter for general adult medical examination without abnormal findings Category: Medical (2) Cervical radiculopathy: Code(s): M54.12 - Radiculopathy, cervical region Category: Medical (3) Morbid obesity: Code(s): E66.01 - Morbid (severe) obesity due to excess calories Category: Medical (4) Diabetes mellitus: Code(s): E11.9 - Type 2 diabetes mellitus without complications Category: Medical Qualifiers: Diabetes mellitus type: type 2 Diabetes mellitus terminal system operator insulin use: without longterm use Diabetes mellitus complication status: with hyperglycemia Qualified Code(s): E11.65 - Type 2 diabetes mellitus with hyperglycemia Plan Repeat physical exam in a year. Do diabetic eye exam yearly. Repeat colonoscopy in 2033. A1c goal is equal or less than 7%. Blood pressure goal is equal or less than 130/80. LDL goal is less than 70. BMI goal is less than 30. X-ray of the neck order. Orders: Orders Lipid Panel 6 Months E78.5 - Hyperlipidemia, unspecified XR cervical spine 2V Today M54.12 - Radiculopathy, cervical region Microalbumin, Random (w Creat) 6 Months R80.9 - Proteinuria, unspecified Comprehensive [place]. Panel Fast 6 Months E11.65 - Type 2 diabetes mellitus with hyperglycemia Referrals Ophthalmology Referral E11.65 - Type 2 diabetes mellitus with hyperglycemia
[2025-04-10 07:37] VITALS: BP 122/84; PULSE 85; RESP 18; TEMP 37.2; O2SAT 94; BMI 41.7
--- OUTSIDE RECORDS SUMMARY | 2025-04-10 09:04 | XMS_ITS | Clinical Summary ---
Author Organization 175 [facility] Address [address] [place] [address] Phone Care Team Providers Care Follow Up Rep Name Role Phone Adri Ariza MD Primary Care Provider [phone] Allergies Active Allergy Reactions Criticality Noted Date [...] Encounters Date Type Department Care Team Description 04/09/2025 Telephone Orthopedic Surgery [facility] 250 175 [facility] 250 [place] [address] Crystal Gardner MA 02/23/2025 10:30 AM EST Consult Orthopedic Surgery [facility] 160 175 [facility] 160 [place] [phone] Robert Perry MD Nontraumatic incomplete tear of left rotator cuff (Primary Dx); Impingement syndrome of left shoulder; Arthritis of left acromioclavicular joint; Superior glenoid labrum lesion of left shoulder, initial encounter 01/18/2025 Results Follow-Up Orthopedic Surgery - [place] 175 [facility] [address] [place] [phone] Stephanie Wen MD 01/15/2025 8:44 AM EDT - 01/15/2025 11:59 PM EDT Hospital Encounter [facility] MRI [address] [place] [phone] Nontraumatic incomplete tear of left rotator cuff Discharge Disposition: Home or Self Care 01/11/2025 9:00 AM EDT Treatment [facility] [place] 175 [facility] [address] [place] [phone] Venkata Garces, KENNY Nontraumatic incomplete tear of left rotator cuff [...] Description 04/26/2025 11:00 AM EST Hospital Encounter [facility] Main OR [address] [place] [phone] Robert Perry MD 175 [facility] 160 [place] [address] 04/26/2025 11:00 AM EST - 04/26/2025 12:30 PM EST Surgery [facility] Main OR [address] [place] [phone] Robert Perry MD [address] [address] ARTHROSCOPY LEFT SHOULDER, REPAIR ROTATOR CUFF [56800 (CPT )] 05/04/2025 8:30 AM EST Evaluation Outpatient Rehabilitation [address] [address] Mahesh Schroeder, PT 175 [place] [address] 05/09/2025 1:30 PM EST Office Visit Orthopedic Surgery - [place] [address] [phone] Robert Perry MD [address] [address] Scheduled Procedures Name Priority Associated Diagnoses Date/Ti [...] Author PT LTGs General No Janusz Gavin, PT Note: Pt will increase left shoulder AROM [...] Signed Date: 01/16/2025 04:14 ET Workstation ID: [id number] Transcribed By: Self Edit Transcribed Date: 01/16/2025 [...] Signed Date: 01/16/2025 04:14 ET Workstation ID: [id number] Transcribed By: Self Edit Transcribed Date: 01/16/2025 04:05 ET Stephanie Wen MD IM MRI PROCEDURES Final Resu lt from Last 3 Months Additional Health Concerns Active Problems Noted Date Diagnosed Date Autogenerated Problem 02/23/2025 Insurance [facility] Care Teams Follow Up Rep Relationship Specialty Start Date End Date Ardi Ariza MD [address] [facility] , [address] [facility] Physician Associ D/B/A: [facility] TRICE Del Angel PCP - General Internal Medicine 11/22/24
--- OUTSIDE RECORDS SUMMARY | 2025-04-10 09:05 | XMS_ITS | Patient Health Record ---
Author Organization [facility] Address [address] [place] [address] Care Team Providers Care Signaler Name Role Phone Adri Dunn Primary Care Provider Janusz Prescott [phone] Allergies No Known Allergies Reason For Referral [...] Problem Screening for malignant neoplasm of colon (122797136) Encounter for screening for malignant neoplasm of colon (Z12.11) Active confirmed Problem Pre-procedure evaluation check (201100771) Encounter for other preprocedural examination (Z01.818) Active confirmed Problem Diverticular disease of colon (129473871) Diverticulosis of large intestine without perforation or abscess without bleeding (K57.30) Active confirmed Plan Of Treatment Future Test Test Name Order Date COLONOSCOPY 05/27/2023 Insurance Providers Payer Name Payer Address Payer Phone Subscriber Number Group Number Insured Name Patient Relationship to Insured Coverage Start Date Coverage End Date [facility] [address] [address] [place], [place] [id number] EDMUND LEONARD Self - patient is the insured Medical (General) History Medical History History ICD Code Denies CA,CVA,Lung disease,renal disease Psoriasis Pulmonary embolus--on a blood thinner fo r 18 months--saw Dr. Mckay NIDDM- Hyperlipidemia Surgical History Surgery Date(Month/Year) Vasectomy, reversal, and then another va sectomy Left Foot Right wrist
--- OUTSIDE RECORDS SUMMARY | 2025-04-10 09:05 | XMS_ITS | Encounter Summary ---
Author Organization [facility] Address [address] [place] [phone] Care Team Providers Care Lease Broker Name Role Phone Adri Ariza MD Primary Care Provider [phone] Reason for Visit * Reason Onset Date Comments Surgery PA Auth 04/09/2025 Encounter Details Date Type Department Care Team (Late st Contact Info) Description 04/09/2025 Telephone Orthopedic Surgery - [place] 250 175 [facility] 250 [place] [address] Crystal Gardner MA Social History Tobacco Use Types Packs/Day Years Used Date Smoking Tobacco: Never Assessed Sex and Gender Information Value Date Recorded Sex Assigned at Not on file Legal Sex Male 8:53 AM EDT Gender Identity Not on file Sexual Orientation Not on file documented as of this encounter Progress Notes * Crystal Gardner MA - 04/09/2025 3:58 PM EST AUTH: Tonia harper I Case# [id number] Clinicals faxed [phone] Fax Confirmation was scanned in patients chart documented in this encounter Plan of Treatment Upcoming Encounters Date Type Department Care Team (Latest Contact Info) Description 04/26/2025 11:00 AM EST Hospital Encounter [facility] Main OR [address] [place] [phone] Robert Perry MD 175 [facility] [address] [place], [place] [phone] 04/26/2025 11:00 AM EST - 04/26/2025 12:30 PM EST Surgery [facility] Main OR [address] [place] [phone] Robert Perry MD [address] [address] ARTHROSCOPY LEFT SHOULDER, REPAIR ROTATOR CUFF [54133 (CPT )] 05/04/2025 8:30 AM EST Evaluation Outpatient Rehabilitation [address] [phone] Mahesh Schroeder, PT 175 [place] [address] 05/09/2025 1:30 PM EST Office Visit Orthopedic Surgery [place] [address] [phone] Robert Perry MD [address] [address] Scheduled Procedures Name Priority Associated Diagnoses Date/Ti me ARTHROSCOPY SHOULDER REPAIR ROTATOR CUFF Nontraumatic incomplete tear of left rotator cuff Impingement syndrome of left shoulder Arthritis of left acromioclavicular joint Superior glenoid labrum lesion of left shoulder, initial encounter 04/26/2025 11:00 AM EST documented as of this encounter Goals Goal Patient Goal Type Associated Problems [...] Plan Autogenerated Problem No Robert Perry MD documented as of this encounter Visit Diagnoses Not on filedocumented in this encounter Additional Health Concerns Active Problems Noted Date Diagnosed Date Autogenerated Problem 02/23/2025 documented as of this encounter Care Teams Lease Broker Relationship Specialty Start Date End Date Adri Ariza MD [address] [facility] , [address] [facility] Physician Associ D/B/A: [facility] TRICE Del Angel PCP - General Internal Medicine 11/22/24 documented as of this encounter
== END 2025-04-10 08:03 | disposition home or self-care (01) ==
LOC: HO.HMCH 07:34
PROVIDERS: PCP Internal Medicine; Visit Provider Internal Medicine
DX: Z00.00 Encounter for general adult medical examination without abnormal findings (principal); E11.65 Type 2 diabetes mellitus with hyperglycemia; E66.01 Morbid (severe) obesity due to excess calories; Z68.41 Body mass index [BMI] 40.0-44.9, adult; M54.12 Radiculopathy, cervical region

== ENCOUNTER → 2025-04-10 07:34 | Outpatient (BNVA) | payer OTHER, SELFPAY | PROVIDERS: PCP Internal Medicine; Visit Provider Internal Medicine | DX: Z00.00 Encounter for general adult medical examination without abnormal findings (principal); M54.12 Radiculopathy, cervical region; E66.01 Morbid (severe) obesity due to excess calories; E11.65 Type 2 diabetes mellitus with hyperglycemia; R80.9 Proteinuria, unspecified; Z79.899 Other long term (current) drug therapy | CPT/HCPCS: 99396 ==